=== PATIENT | female | born 1935 | race Caucasian/White ===

== ENCOUNTER 2018-05-31 04:43 | Inpatient (IN) ==
--- NOTE | 2018-05-16 11:28 | PAT Medication Instructions ---
Medication Instructions Date of Service May 16, 2018 Home Medications acetaminophen 1,000 mg PO QAM aspirin [Aspir-81] 81 mg PO QAM calcium carbonate-vitamin D3 [Calcium 600 + D(3)] 1 tab PO QPM ferrous sulfate 325 mg PO QAM fish,bora,flax oils-om3,6,9no1 [[place] 3-6-9] 1 tab PO QAM fluticasone furoate 2 spray INTRANASAL DAILY NEEDED levothyroxine 75 mcg PO QAM meloxicam 15 mg PO QAM metoprolol succinate 25 mg PO QAM potassium chloride 10 meq PO QPM ASK your surgeon for instructions meloxicam 15 mg PO QAM STOP taking 2 weeks before surgery fish,bora,flax oils-om3,6,9no1 [[place] 3-6-9] 1 tab PO QAM DO NOT take the morning of surgery ferrous sulfate 325 mg PO QAM fluticasone furoate 2 spray INTRANASAL DAILY NEEDED Take morning of surgery With a small sip of water, OTHERWISE NOTHING TO EAT OR DRINK AFTER MIDNIGHT: acetaminophen 1,000 mg PO QAM aspirin [Aspir-81] 81 mg PO QAM levothyroxine 75 mcg PO QAM metoprolol succinate 25 mg PO QAM Take evening before surgery calcium carbonate-vitamin D3 [Calcium 600 + D(3)] 1 tab PO QPM potassium chloride 10 meq PO QPM Other Notes If you have any questions please call us at [phone] or [phone] or [phone] or [phone]
--- NOTE | 2018-05-16 14:02 | Anesthesiology Consultation ---
Date of Service May 16, 2018 Assessment & Plan (1) Encounter for pre-operative examination: Chart Review Chart Review: Acceptable Risk for Surgery and Patient seen in Pre Admission Testing Consults Requested none Teaching & Discussion Pre-Anesthesia Teaching/Discussion Notes: Instructed NPO after midnight before surgery, except medications with 15 cc of water. Medication instructions provided according to the PAT guidelines. History Surgery Operation Date: 05/31/18 14:35 Proposed Procedures p Right Total Knee Replacement - Ralph Mg MD Height/Weight Height: 5 ft 3 in Weight: 71.8 kg Allergies Allergy/AdvReac Type Severity Reaction Status Date / Time No Known Allergies Allergy Unknown Verified 05/15/18 15:35 Medications Home Medications Medication Instructions Recorded Confirmed Last Taken acetaminophen 1,000 mg PO QAM 05/15/18 05/15/18 Unknown aspirin [Aspir-81] 81 mg PO QAM 05/15/18 05/15/18 Unknown calcium carbonate-vitamin D3 1 tab PO QPM 05/15/18 05/15/18 Unknown [Calcium 600 + D(3)] ferrous sulfate 325 mg PO QAM 05/15/18 05/15/18 Unknown fish,bora,flax oils-om3,6,9no1 1 tab PO QAM 05/15/18 05/15/18 Unknown [[place] 3-6-9] fluticasone furoate 2 spray INTRANASAL DAILY PRN 05/15/18 05/15/18 Unknown levothyroxine 75 mcg PO QAM 05/15/18 05/15/18 Unknown meloxicam 15 mg PO QAM 05/15/18 05/15/18 Unknown metoprolol succinate 25 mg PO QAM 05/15/18 05/15/18 Unknown melatonin 10 mg PO HS PRN 05/16/18 05/16/18 Unknown Past Medical History Medical History Anemia HX Cardiac murmur HX DVT (deep venous thrombosis) POST BABY DELIVERY LEG-40 YRS AGO-NO ISSUES SINCE Hypothyroidism Insomnia Osteoarthritis Paroxysmal atrial fibrillation Tremor "WHEN WRITING-RUNS IN THE FAMILY" Past Family History Family History Sister Family history of diabetes mellitus Sister Family history of diabetes mellitus Brother Family history of diabetes mellitus Father Family history of diabetes mellitus Past Surgical History Surgical History H/O colonoscopy x 4-5 Last one was 3 years ago. History of cataract surgery R/L History of herniorrhaphy Umbilical X 2 History of repair of rotator cuff RIGHT History of tonsillectomy ~Age 5-10 Past Anesthesia History No Hx of Anesthesia Complications and No Family Hx of Anesthesia Complications History of PONV No Motion Sickness Screening History of Motion Sickness: No Social History Smoking Status: Never smoker Do You Dip or Chew Tobacco: No Hx Alcohol Use: Yes Alcohol type: wine alcohol intake frequency: holidays/special occasions only Hx Substance Use: No Exercise / Class Metabolic Activity II 4-5 Yardwork/Stairs/Walk up hill (Able to climb FOS. Denies CP or SOB. ) Review of Systems Patient denies chest pain, shortness of breath, dyspnea on exertion, reflux, cough, wheezing, palpitations. +joint pain (both knees, back) Physical Exam Vital Signs BP: 116/74 P: 75 R: 16 T: 98.2 SPO2: 96% on RA ENMT Mouth: + poor dentition Thyromental Distance: > or= 3.5 Finger Breadths (4) Mallampati Class: I Neck normal visual inspection and trachea midline; neck extension not limited Respiratory normal respiratory effort Auscultation: lungs clear to auscultation bilaterally Cardiovascular Rate/Rhythm: regular rate and regular rhythm Heart Sounds: + murmur (2/6) Vessels: no carotid bruit Neurologic moves all extremities Psychiatric Orientation: alert and oriented x 3 Testing Electrocardiogram Date: 05/16/18 Findings: + NSR @ (64) Sinus rhythm with premature atrial complexes. Left axis deviation. Incomplete RBBB. When compared with ECG of 04/17/08, PACs are now present. Chest X-Ray Date: 05/16/18 Findings: + NAD Mild emphysematous change. Echocardiogram Date: 03/21/17 EF: 60-64% Other Findings: + diastolic dysfunction (Grade I) Aortic valve is moderately calcified. Moderate subvalvular AV calcification visualized, which is unchanged compared to prior study. Mild aortic valve stenosis is present. Calcified mitral apparatus without stenosis. Mild tricuspid regurgitation is present. There is no evidence of pulmonary hypertension. Compared to last available study, changes are noted as follows: mild aortic stenosis is present. Stress Test Date: 04/12/13 Type: exercise Findings: + WNL The stress ECHO is negative for inducible ischemia. Exercise capacity is average for patient's age/sex. Sinus rhythm was present throughout the study, with occasional PACs noted during exercise. The test was terminated due to fatigue and shortness of breath. Laboratory Results 05/16/18 14:34 05/16/18 14:34 Blood Type O Positive 05/16/18 14:34 Antibody Screen NEGATIVE 05/16/18 14:34 PT 11.4 Seconds (9.0-12.0) 05/16/18 14:34 INR 1.1 (0.9-1.1) 05/16/18 14:34 APTT 27.2 Seconds (21.0-31.0) 05/16/18 14:34
--- NOTE | 2018-05-16 15:11 | XRay Report ---
XR chest Pre-admission PA/Lat CLINICAL HISTORY: pat preoperative evaluation COMPARISON STUDY: No previous studies for comparison. FINDINGS: Calcified pleural plaque right perihilar region. Mild emphysematous change. No focal infilt rate. No significant cardiac enlargement. IMPRESSION: No acute process. Mild emphysematous change. The above report was generated using voice recognition software. It may contain grammatical, syntax or spelling errors. Electronically signed by: Surjit Lin M.D. 05/16/2018 3:10 PM
[2018-05-16 15:50] LABS: Basophils # (auto) 0.01 K/uL (0-0.2); Basophils % (auto) 0.2 %; Eosinophils # (auto) 0.05 K/uL (0-0.5); Hematocrit (blood only) 34.7 % (37-47); Hemoglobin 11.3 g/dL (12.0-16.0); Lymphocytes # (auto) 1.15 K/uL (1.2-3.4); Lymphocytes % (auto) 23.2 %; Mean Corpuscular Hgb Conc 32.6 g/dL (32-36); Mean Corpuscular Volume 93.8 fL (80-100); Mean Platelet Volume 10.8 fL (7.4-10.4); Monocytes # (auto) 0.51 K/uL (0.11-0.59); Monocytes % (auto) 10.3 %; Neutrophils # (auto) 3.23 K/uL (1.4-6.5); Neutrophils % (auto) 65.3 %; Platelet Count 284 K/uL (130-400); RDW Coefficient of Variation 12.8 % (11.5-14.5); RDW Standard Deviation 43.9 fL (36.4-46.3); White Blood Count 4.95 K/uL (4.8-10.8)
[2018-05-16 15:57] LABS: BUN Creatinine Ratio 18.5 (10-20); Creatinine Clr Calc Pharmacy 62.7 ml/min; Est GFR (African American) 95.8; Est GFR (Non-African American) 82.6; Potassium 4.4 mmol/L (3.5-5.1)
[2018-05-16 16:04] LABS: INR 1.1 (0.9-1.1); Partial Thromboplastin Time 27.2 Seconds (21.0-31.0); Prothrombin Time 11.4 Seconds (9.0-12.0)
--- NOTE | 2018-05-26 08:43 | History and Physical Report ---
DATE OF ADMISSION: 05/31/2018 CHIEF COMPLAINT: Bilateral knee pain and discomfort, right side greater than left. HISTORY OF PRESENT ILLNESS: The patient is an 82-year-old female who presents for surgical treatment of her right knee. She has got long history of bilateral knee pain and discomfort, describes it has gotten worse over the past several years. We have been treating her for the past 2 years with intermittent injections, which have become less successful with time. The right knee is a bit worse than the left. She describes global pain. Increased with any weightbearing activities. The more she walks, the more it hurts. She does limp more and more as the day goes on. She has nighttime pain. PAST MEDICAL HISTORY: 1. Atrial fibrillation, currently in sinus rhythm, followed by Dr. Rivera and on metoprolol. 2. Hiatal hernia. PREVIOUS SURGICAL HISTORY: 1. Herniorrhaphy. 2. Right shoulder surgery. ALLERGIES: None. CURRENT MEDICINES: Include: 1. Levothyroxine 75 mcg 30 minutes prior to breakfast. 2. Metoprolol ER 25 mg. 3. Baby aspirin once a day. 4. Iron sulfate 325 once a day. 5. Meloxicam 15 mg. 6. Calcium with D. 7. Tylenol. 8. [place]-3. 9. Potassium 10 mEq 3 times per week. SOCIAL HISTORY: An 82-year-old female. She is . No significant smoking history. FAMILY HISTORY: Noncontributory. REVIEW OF SYSTEMS: Significant for history of atrial fibrillation, currently on metoprolol and controlled. Denies any chest pain or shortness of breath. No history of DVT or PE. No known bleeding problems. PHYSICAL EXAMINATION: GENERAL: Shows a pleasant elderly female who looks to be in excellent health. HEENT: Benign. NECK: Supple. No lymphadenopathy. LUNGS: Clear to auscultation. HEART: Regular rate and rhythm. ABDOMEN: Soft, nontender, nondistended. EXTREMITIES: Grossly neurovascularly intact except as follows. Examination of the right knee reveals the patient ambulates with varus alignment to her knee with little bit of varus thrust. She has got about 10-15 degree flexion contracture on the right side and can flex to about 110-115. She is tender over the medial joint line. She has got bony hypertrophy medially. No pain with hip motion. Good distal pulse. X-RAYS: X-rays of the right knee reviewed. Shows advanced right knee DJD. She has got complete loss of medial joint space. She has got varus deformity with osteophytes in all 3 compartments. She has subchondral sclerosis. ASSESSMENT: An 82-year-old female with advanced bilateral knee pain, degenerative joint disease. The right side is a bit worse than the left. She has failed conservative treatment and would like to proceed with knee replacement. PLAN: We will take her to the Operating Room and do a right total knee replacement. The risks and benefits of this procedure were explained to the patient include but not limited to DVT, PE, , infection, neurological injury, vascular injury, bleeding problem, pain, limited range of motion, stiffness, failure to relieve her symptoms, incomplete relief of symptoms, need for further surgery in the future, fracture, leg length inequality, nerve palsy, etc. The patient understands and desires to proceed. Informed consent was obtained. We did talk to her about taking her metoprolol the morning of surgery. She stopped her Mobic. She is hoping to be discharged to home with [facility] I believe.
[2018-05-31] MEDS ORDERED: METOCLOPRAMIDE HCL 10 MG TABLET PO SCH (06:00)
[2018-05-31] MEDS ORDERED: ACETAMINOPHEN 500 MG TAB PO SCH ×2 (06:00→10:36)
[2018-05-31] MEDS ORDERED: BUPIVACAINE LIPOSOME/PF 266 MG, BUPIVACAINE/EPINEPHRINE 50 ML, SODIUM CHLORIDE 0.9% 30 ... INFIL SCH (06:00)
[2018-05-31] MEDS ORDERED: CEFAZOLIN 2000MG 2,000 MG/15 ML SYR IV SCH (06:00)
[2018-05-31] MEDS ORDERED: LR 60ML/HR IV SCH (06:00)
[2018-05-31] MEDS ORDERED: LR 500ML BOLUS, THEN 15ML/HR IV SCH (06:00)
[2018-05-31] MEDS ORDERED: GABAPENTIN 300 MG PO SCH (06:00)
[2018-05-31] MEDS ORDERED: FAMOTIDINE 20 MG TAB ONE (06:05)
[2018-05-31] MEDS ORDERED: ePHEDrine sulfate 50 MG/ML AMP IV PRN (06:22)
[2018-05-31] MEDS ORDERED: ONDANSETRON INJ 2 MG/ML 2 ML VIAL IV PRN ×2 (06:22→10:36)
[2018-05-31] MEDS ORDERED: ATROPINE SULFATE 0.1 MG/ML 10ML SYR IV PRN (06:22)
[2018-05-31] MEDS ORDERED: fentaNYL citrate 100 MCG/2 ML VIAL IV PRN (06:22)
[2018-05-31] MEDS ORDERED: MIDAZOLAM HCL 1 MG/ML 2ML VIAL ONE (06:23)
[2018-05-31] MEDS ORDERED: BUPIVACAINE 0.5 % 5 MG/1 ML PF 10ML VIAL ONE (06:26)
[2018-05-31] MEDS ORDERED: ROPIVACAINE 0.5% 5 MG/ML 30 ML VIAL ONE (06:27)
[2018-05-31] MEDS ORDERED: KETAMINE HCL INJ 50 MG/ML 10 ML VIAL ONE (06:28)
[2018-05-31] MEDS ORDERED: TRANEXAMIC ACID 1,000 MG **IV Intra-op IV SCH (06:30)
[2018-05-31] MEDS ORDERED: BACITRACIN INJ 50,000 UNIT VIAL ONE (06:35)
[2018-05-31] MEDS ORDERED: BUPIVACAINE LIPOSOME 1.3% 266 MG/20 ML VIAL ONE (06:35)
[2018-05-31] MEDS ORDERED: SODIUM CHLORIDE 0.9% PF 50 ML VIAL ONE (06:35)
[2018-05-31] MEDS ORDERED: BUPIVACAINE 0.25% 30 ML VIAL ONE (06:36)
[2018-05-31] MEDS ORDERED: EPINEPHrine INJ 1 MG/ML AMP ONE (06:36)
--- NOTE | 2018-05-31 06:48 | History & Physical Bridge Note ---
Date of Service May 31, 2018 History & Physical Bridge Note I have examined the patient, reviewed the History & Physical and in the interval since the performance of the History & Physical I have noted the following changes of clinical significance: no changes noted
[2018-05-31] MEDS ORDERED: ONDANSETRON INJ 2 MG/ML 2 ML VIAL ONE (07:20)
[2018-05-31] MEDS ORDERED: GLYCOPYRROLATE 0.2 MG/ML VIAL ONE (07:20)
[2018-05-31] MEDS ORDERED: LIDOCAINE HCL 2% 2 ML VIAL/AMP(20MG/ML) INFIL ONE (07:20)
[2018-05-31] MEDS ORDERED: PROPOFOL IV EMULSION 10 MG/ML 20 ML VIAL IV ONE (07:20)
[2018-05-31] MEDS ORDERED: DEXAMETHASONE SOD INJ 4 MG/ML VIAL ONE (07:20)
--- NOTE | 2018-05-31 08:50 | XRay Report ---
XR knee RT 2V routine CLINICAL HISTORY: Postoperative evaluation. COMPARISON: Right knee radiographs May 14, 2018. FINDINGS: Alignment of the total right knee arthroplasty is anatomic. There is no fracture or unexpe cted radiopaque foreign body. There are skin herbert. IMPRESSION: Expected findings following total right knee arthroplasty. Electronically signed by: Jimi Love M.D. 05/31/2018 8:49 AM
--- NOTE | 2018-05-31 09:03 | Post Operative Brief Note ---
Immediate Post Op Note v1 Date of Surgery May 31, 2018 Pre & Post Diagnosis Operation Date: 05/31/18 07:00 Pre-Op Diagnosis: Right Knee Degenerative Joint Disease Post-Op Diagnosis: Right Knee Degenerative Joint Disease Procedure Operation Date: 05/31/18 07:00 Actual Procedures p Right Total Knee Replacement(Right) - Ralph Mg MD Surgeon Ralph Mg MD Brake Holder Kaylie, PAC Estimated Blood Loss 50 Findings Consistent with Post-Op Diagnosis Fluids 1500 cc Specimens Right Knee Drains Samayoa Catheter (16fr samayoa catheter placed by ST Harish, without difficulty, samayoa demonstrates clear yellow urine. Output measured and recorded by anesthesia.) Anesthesia Type Spinal MAC Complications none Disposition Accompanied Patient To Recovery: No Disposition: Recovery Room
--- NOTE | 2018-05-31 10:20 | Anesthesiology Progress Note ---
Date of Service May 31, 2018 Anesthesia Post Procedure Vital Signs Vital Signs: Temp Pulse Pulse Resp BP Pulse Ox 05/31/18 10:10 36.7 C 68 17 111/68 97 05/31/18 10:00 67 18 115/58 L 98 05/31/18 09:50 67 19 108/57 L 97 05/31/18 09:40 67 17 109/60 98 05/31/18 09:30 70 18 106/57 L 97 05/31/18 09:20 69 21 114/60 98 05/31/18 09:10 67 16 118/56 L 100 05/31/18 09:00 66 14 111/64 100 05/31/18 08:50 68 17 106/51 L 100 05/31/18 08:40 66 15 104/55 L 100 05/31/18 08:33 36.5 C 70 18 100/50 L 100 05/31/18 05:45 36.8 C 69 18 97 Pain Intensity Bilateral Knee: Pain Intensity: 2 Notes Mental Status: alert / awake / arousable Patient Amnestic to Procedure: Yes Nausea / Vomiting: adequately controlled Pain: adequately controlled Airway Patency, RR, SpO2: stable & adequate BP & HR: stable & adequate Hydration State: stable & adequate Neuraxial Anesthesia: was administered and sensory block is resolving Anesthetic Complications: no major complications apparent and Pt Satisfied with anesthetic care
[2018-05-31] MEDS ORDERED: BISACODYL 10 MG SUPP PR PRN (10:36)
[2018-05-31] MEDS ORDERED: METOCLOPRAMIDE HCL INJ 5 MG/ML 2 ML VIAL IV PRN (10:36)
[2018-05-31] MEDS ORDERED: HYDROmorphone INJ 0.5 MG/0.5 ML SYR IV PRN (10:36)
[2018-05-31] MEDS ORDERED: [UNRECOGNIZED DRUG - REMARK] PO SCH (10:36)
[2018-05-31] MEDS ORDERED: ALUMINUM/MAGNESIUM SUSP 30 ML UDC PO PRN (10:36)
[2018-05-31] MEDS ORDERED: NALOXONE HCL 0.4 MG/1 ML VIAL/CARP IV PRN (10:36)
[2018-05-31] MEDS ORDERED: MAGNESIUM HYDROXIDE SUSP 30 ML UDC PO PRN (10:36)
[2018-05-31] MEDS ORDERED: NON-FORMULARY MEDICATION (Ferrous Sulfate 325 MG) PO SCH (10:36)
[2018-05-31] MEDS ORDERED: FLUTICASONE PROPIONATE NA SPR 16 GM BTL PRN (11:00)
[2018-05-31] MEDS: KETOROLAC TROMETHAMINE 15 MG/ML VIAL IV SCH ×3 (12:50→23:39)
[2018-05-31] MEDS: MULTIVITAMIN TAB PO SCH (12:50)
[2018-05-31] MEDS: LEVOTHYROXINE SODIUM 75 MCG TABLET PO SCH (12:50)
[2018-05-31] MEDS: DOCUSATE SODIUM 100 MG CAP PO SCH ×2 (12:50→21:56)
[2018-05-31] MEDS: SODIUM CHLORIDE 0.9% 1000ML 1,000 ML IV SCH ×2 (12:51→21:56)
[2018-05-31] MEDS: ACETAMINOPHEN 500 MG TAB PO SCH ×2 (13:45→21:57)
[2018-05-31] MEDS: CEFAZOLIN 1000MG 1,000 MG/7.5 ML SYR IV SCH ×2 (13:46→21:57)
[2018-05-31] MEDS ORDERED: TRANEXAMIC ACID 1,000 MG in 0.9 % SODIUM CHLORIDE 100 ML IV SCH (14:30)
[2018-05-31] MEDS: FERROUS GLUCONATE 324 MG TAB PO SCH (17:29)
[2018-05-31] MEDS: ASCORBIC ACID 500 MG TAB PO SCH (17:29)
--- NOTE | 2018-05-31 20:52 | Progress Note ---
DATE: 05/31/2018 SUBJECTIVE: An 82-year-old female postop from a right knee replacement. Really not having much pain at all yet. No chest pain or shortness of breath. Not feeling dizzy or lightheaded. OBJECTIVE: VITAL SIGNS: Temperature 36.5. Vital signs stable. PHYSICAL EXAMINATION: GENERAL: Examination shows pleasant elderly female. She is sitting up in her bedside chair and looks pretty comfortable. LUNGS: Clear to auscultation. HEART: Regular rate and rhythm. ABDOMEN: Soft, nontender, nondistended. EXTREMITIES: Grossly neurovascularly intact except as follows: Examination of the right knee reveals the dressing to be clean, dry and intact. She can dorsiflex and plantarflex her foot appropriately. She has got brisk refill. Good distal pulse. X-RAYS: X-ray of the right knee from recovery room reviewed. Shows cemented posterior stabilized right total knee arthroplasty. Components looked to be in good position. No signs of problems. ASSESSMENT: An 82-year-old female postop from a right knee replacement. She is doing pretty well. Her pain is controlled. She is neurologically intact. PLAN: 1. DVT prophylaxis including thigh-high TEDs, SCDs, and aspirin twice daily. 2. PT/OT. Weight bear as tolerated. Right total knee protocol. 3. Pain control, doing well with current pain regimen. 4. IV antibiotics x24 hours. 5. Disposition: Plan to discharge to home with some home health once adequately recovered.
[2018-05-31] MEDS: SENNA 8.6 MG TAB PO SCH (21:57)
[2018-05-31] MEDS: ASPIRIN 81 MG ECTAB PO SCH (21:57)
[2018-05-31] MEDS: CALCIUM 600MG + VIT D 400 IU TAB PO SCH (21:57)
[2018-05-31] MEDS: TRAMADOL HCL 50 MG TABLET PO PRN (23:39)
--- NOTE | 2018-06-01 00:02 | Operative Report ---
DATE OF OPERATION: 05/31/2018 SURGEON: Ralph Mg MD PUBLIC POLICY ASSOCIATE: TONG Medina PREOPERATIVE DIAGNOSIS: Right knee degenerative joint disease. POSTOPERATIVE DIAGNOSIS: Same. PROCEDURE PERFORMED: Right cemented posterior stabilized total knee arthroplasty. COMPLICATIONS: None. ESTIMATED BLOOD LOSS: 50 mL. FLUID REPLACEMENT: 1500 mL crystalloid fluid replacement. TOURNIQUET TIME: 51 minutes at 300 mmHg. ANESTHESIA: Spinal with adductor canal block. DRAINS: None. SPECIMENS: Right knee sent for pathology. OPERATIVE INDICATIONS: The patient is an 82-year-old active female who has had a long history of bilateral knee pain and discomfort, right side a bit worse than the left. She has been through extensive conservative treatment over the years, it became less successful. It is really limiting her lifestyle. X-rays show advanced DJD. She elected to proceed with right total knee replacement. OPERATIVE FINDINGS: Operative findings revealed advanced right knee DJD. She has had extensive grade 4 [id number] disease and eburnation in the medial compartment. She also had grade 4 changes in the patellofemoral compartment and some focal grade 4 changes laterally. She had a varus deformity to her knee with a flexion contracture of 10-15 degrees and moderate-sized knee effusion. OPERATIVE IMPLANTS: Operative implants consisted of: 1. A Biomet Vanguard size 65 right posterior stabilized femoral component. 2. A Biomet size 71 tibial tray. 3. A 12 mm posterior stabilized polyethylene insert. 4. A 31 x 8 all poly patella. OPERATIVE PROCEDURE: The patient was taken to the operating room, identified, and placed on the operative table in supine position. All contact areas were appropriately padded. IV antibiotics were provided by anesthesia team. A spinal anesthetic and adductor canal block had been provided in the holding area. Lowe catheter was placed in sterile fashion. A right thigh tourniquet was then placed and the right lower extremity was then prepped and draped in the usual sterile fashion. The right leg was elevated and exsanguinated with Esmarch and tourniquet was placed at 300 mmHg. An anterior approach to the right knee was then performed through a longitudinal incision centered over the patella. Sharp dissection was carried through subcutaneous tissue down to the level of the extensor mechanism. Medial parapatellar arthrotomy incision was made. Some subperiosteal dissection was carried out medially. The fat pad was resected from beneath the patellar tendon. The lateral patellofemoral ligament was released. The patella was everted and knee was flexed. The osteophytes were taken off the distal femur. The ACL and PCL were then released from the distal femur and the tibia subluxated anteriorly. The external tibial alignment jig was then placed in the anterior face of the tibia and adjusted 16 mm medially. Proximal tibial cut was made to remove about a millimeter of bone from the most deficient aspect of the medial tibial plateau. Some osteophytes were taken off medial and posteromedially. Attention was then drawn to the femur. The distal femur was entered with a sharp drill bit. Intramedullary canal was suctioned. A right 6-degree valgus cutting guide was placed. Distal femoral cutting block was pinned in place. Distal femoral cut was made to take an additional 3 mm of bone off the distal femur. The femur was then sized to a size 65. We did downsize this slightly. The AP cutting block was pinned parallel to the epicondylar axis, which was 0 degrees of external rotation. The anterior cut, anterior chamfer, posterior cut, posterior chamfer cuts were made. Box cutting guide was placed and adjusted slightly lateral and the box cut was made. The knee was flexed. The remnants of the medial and lateral menisci were excised. The osteophytes were taken off the posterior aspect of the femur. Trial femoral component was placed. The size 71 tibial tray was pinned in place, it was placed in maximum external rotation. The drill and stem punch were used to create a defect in proximal tibia for the tibial tray. The knee was then trialed and 12 mm insert fit most appropriately. Attention was then drawn to the patella. The patella was cleaned of all soft tissue. Patellar thickness measured 22 mm in thickness, it was cut down to 13. It was sized to a size 31 patella. The lateral osteophytes were removed. Patella button was placed. Knee was taken through range of motion and patella tracked nicely with no thumbs test. Attention was then drawn toward placement of permanent components. All trial components were removed. Bone plug was placed in the distal femur to limit blood loss. A double batch of [place] G cement was mixed. A Biomet Vanguard size 65 right posterior stabilized femoral component, Biomet size 71 tibial tray, a 12 mm posterior stabilized polyethylene insert, and a 31 x 8 all poly patella were then cemented in place. Knee was brought out into full extension until cement hardened. A final cement check was then performed. Pericapsular tissues were injected with a total of 100 mL with a combination of 20 mL of Exparel, 30 mL of normal saline, 50 mL of 0.25% Marcaine with epinephrine. The patient did receive 1 gram of tranexamic acid. The tourniquet was then let down for a tourniquet time of 51 minutes. Hemostasis was assured with use of electrocautery. The extensor mechanism was then closed with a combination of #1 PDS suture and #1 Vicryl suture in a [id number] fashion. The extensor mechanism was checked and found to be intact. The subcutaneous tissue was then closed with #2 Dexon suture in buried interrupted fashion. The skin was closed with skin herbert. Leg was then cleaned and dried and a sterile dressing of Xeroform, 4 x 4's, sterile cast padding, and Cory bandage were applied. The patient was then transferred to the recovery room in stable condition. The patient tolerated the procedure well with no complication. All needle and sponge counts were correct at the end of the operation. I attest to the content of the Intraoperative Record and any orders documented therein. Any exception s are noted below.
[2018-06-01] MEDS: KETOROLAC TROMETHAMINE 15 MG/ML VIAL IV SCH ×3 (05:58→17:33)
[2018-06-01] MEDS: ACETAMINOPHEN 500 MG TAB PO SCH ×3 (05:58→22:16)
[2018-06-01] MEDS: LEVOTHYROXINE SODIUM 75 MCG TABLET PO SCH (05:59)
[2018-06-01 06:42] LABS: Hematocrit (blood only) 29.5 % (37-47); Hemoglobin 9.8 g/dL (12.0-16.0); Mean Corpuscular Hgb Conc 33.2 g/dL (32-36); Mean Corpuscular Volume 92.2 fL (80-100); Platelet Count 213 K/uL (130-400); RDW Coefficient of Variation 12.2 % (11.5-14.5); RDW Standard Deviation 41.8 fL (36.4-46.3)
[2018-06-01 07:18] LABS: BUN Creatinine Ratio 25.6 (10-20); Calcium 7.4 mg/dl (8.5-10.1); Creatinine Clr Calc Pharmacy 72.6 ml/min; Est GFR (African American) 101.5; Est GFR (Non-African American) 87.6; Potassium 4.2 mmol/L (3.5-5.1)
[2018-06-01] MEDS: FERROUS GLUCONATE 324 MG TAB PO SCH ×2 (08:26→17:34)
[2018-06-01] MEDS: ASCORBIC ACID 500 MG TAB PO SCH ×2 (08:26→17:33)
[2018-06-01] MEDS: METOPROLOL SUCC 25MG EXT REL TAB PO SCH (08:26)
[2018-06-01] MEDS: MULTIVITAMIN TAB PO SCH (08:27)
[2018-06-01] MEDS: ASPIRIN 81 MG ECTAB PO SCH ×2 (08:27→22:16)
[2018-06-01] MEDS: DOCUSATE SODIUM 100 MG CAP PO SCH ×2 (08:27→22:16)
--- NOTE | 2018-06-01 08:27 | Anesthesiology Progress Note ---
Date of Service June 01, 2018 Anesthesia Post Procedure Vital Signs Vital Signs: Temp Pulse Pulse Resp BP Pulse Ox 06/01/18 07:20 37.5 C 68 18 106/64 95 06/01/18 03:15 37.3 C 67 16 104/61 95 05/31/18 23:34 36.9 C 67 16 112/67 95 05/31/18 20:42 36.9 C 75 18 116/66 95 05/31/18 16:17 36.5 C 70 19 122/70 96 05/31/18 13:30 37.4 C 72 16 127/74 99 05/31/18 12:33 67 16 136/75 100 05/31/18 12:30 75 16 135/77 100 05/31/18 11:43 70 16 122/76 100 05/31/18 11:00 36.6 C 63 16 115/71 99 05/31/18 10:30 37 C 71 16 103/60 05/31/18 10:10 36.7 C 68 17 111/68 97 05/31/18 10:00 67 18 115/58 L 98 05/31/18 09:50 67 19 108/57 L 97 05/31/18 09:40 67 17 109/60 98 05/31/18 09:30 70 18 106/57 L 97 05/31/18 09:20 69 21 114/60 98 05/31/18 09:10 67 16 118/56 L 100 05/31/18 09:00 66 14 111/64 100 05/31/18 08:50 68 17 106/51 L 100 05/31/18 08:40 66 15 104/55 L 100 05/31/18 08:33 36.5 C 70 18 100/50 L 100 Pain Intensity Bilateral Knee: Pain Intensity: 2 Left Knee: Pain Intensity: 3 Right Knee: Pain Intensity: 8 Notes Mental Status: alert / awake / arousable Nausea / Vomiting: adequately controlled Pain: adequately controlled Airway Patency, RR, SpO2: stable & adequate BP & HR: stable & adequate Hydration State: stable & adequate Neuraxial Anesthesia: was administered and sensory block resolved Anesthetic Complications: no major complications apparent and Pt Satisfied with anesthetic care
[2018-06-01] MEDS: TRAMADOL HCL 50 MG TABLET PO PRN (08:29)
[2018-06-01] MEDS ORDERED: HYDROmorphone HCL 2 MG TAB PO PRN (13:45)
--- NOTE | 2018-06-01 14:00 | Progress Note ---
DATE: 06/01/2018 SUBJECTIVE: An 82-year-old female postop day 1 from a right knee replacement. She is doing pretty well. Pain has been controlled. She denies any chest pain or shortness of breath. Not feeling dizzy or lightheaded. OBJECTIVE: VITAL SIGNS: Temperature is 36.4. Vital signs stable. GENERAL: Physical examination reveals a pleasant elderly female. She is sitting up in her bedside chair, looks pretty comfortable. EXTREMITIES: Examination of the right leg reveals the dressing to be clean, dry and intact. She can dorsiflex and plantarflex her foot appropriately. She is neurologically intact. LABORATORY DATA: Hemoglobin 9.8, hematocrit 29.5. Electrolytes are stable. She is slightly hyponatremic with sodium of 129. ASSESSMENT: An 82-year-old female postop day 1 from a right knee replacement, doing pretty well. Her pain is controlled. She is neurologically intact. PLAN: 1. DVT prophylaxis including thigh-high TEDs, SCDs, and aspirin twice a day. 2. PT/OT. Weight bear as tolerated. Right total knee protocol. 3. Pain control. Doing reasonably well with current pain regimen. 4. Disposition: She is planning to be discharged to home with some home health once medically stable and recovered.
[2018-06-01] MEDS: CALCIUM 600MG + VIT D 400 IU TAB PO SCH (22:16)
[2018-06-01] MEDS: SENNA 8.6 MG TAB PO SCH (22:16)
[2018-06-02] MEDS: KETOROLAC TROMETHAMINE 15 MG/ML VIAL IV SCH ×2 (01:14→06:09)
[2018-06-02] MEDS: TRAMADOL HCL 50 MG TABLET PO PRN ×2 (02:23→08:44)
[2018-06-02] MEDS: ACETAMINOPHEN 500 MG TAB PO SCH (06:08)
[2018-06-02] MEDS: LEVOTHYROXINE SODIUM 75 MCG TABLET PO SCH (06:09)
[2018-06-02 06:37] LABS: BUN Creatinine Ratio 25.6 (10-20); Calcium 8.1 mg/dl (8.5-10.1); Creatinine Clr Calc Pharmacy 86.2 ml/min; Est GFR (African American) 107.4; Est GFR (Non-African American) 92.6; Potassium 4.2 mmol/L (3.5-5.1)
[2018-06-02] MEDS: METOPROLOL SUCC 25MG EXT REL TAB PO SCH (08:39)
[2018-06-02] MEDS: ASPIRIN 81 MG ECTAB PO SCH (08:40)
[2018-06-02] MEDS: ASCORBIC ACID 500 MG TAB PO SCH (08:40)
[2018-06-02] MEDS: DOCUSATE SODIUM 100 MG CAP PO SCH (08:40)
[2018-06-02] MEDS: FERROUS GLUCONATE 324 MG TAB PO SCH (08:40)
[2018-06-02] MEDS: MULTIVITAMIN TAB PO SCH (08:40)
--- NOTE | 2018-06-02 11:10 | Progress Note ---
DATE: 06/02/2018 SUBJECTIVE: The patient is an 82-year-old female seen walking in the [place] with her family and physical therapist today on the Orthopedic Floor. She is alert and oriented. Pain is not too bad. She is using a walker. She had a pretty good night sleep and ready to go home. OBJECTIVE: VITAL SIGNS: Temperature 36.8, blood pressure is slightly elevated at 146/76. GENERAL: She is alert and oriented. EXTREMITIES: Incision is well healed. No drainage noted. No calf discomfort. Working on range of motion. LABORATORY DATA: Images show a well cemented and placed total knee arthroplasty. Other lab work shows that her H and H today is 9.8 and 29.5. ASSESSMENT: An 82-year-old female postop day 2 right total knee arthroplasty, doing well. PLAN: We will do DVT prophylaxis including thigh-high SURI stockings, aspirin. She will do outpatient home health with weightbearing as tolerated and per the total knee protocol. She will be discharged with pain medications and she will follow up in the office with Dr. Mg in 10-14 days to remove surgical clips. CHIARA
--- NOTE | 2018-06-06 07:40 | Discharge Summary ---
Date of Service June 12, 2018 Discharge Data Consultations 05/31/18 10:36 Consult Case Management - Discharge Planning Routine Procedures Performed Operation Date: 05/31/18 07:00 Actual Procedures p Right Total Knee Replacement(Right) - Ralph Mg MD
--- NOTE | 2018-06-10 22:34 | Discharge Summary ---
ADMITTING PHYSICIAN AND SURGEON: Ralph Mg MD ADMITTING DIAGNOSIS: Right knee degenerative joint disease. SURGERY PERFORMED: Right total knee arthroplasty. SECONDARY DIAGNOSES: Atrial fibrillation, hiatal hernia. CONSULTS: None obtained. HISTORY AND PHYSICAL EXAMINATION: Well documented in the patient's chart. HOSPITAL COURSE: The patient was admitted on 05/31/2018, underwent total knee arthroplasty, tolerated the procedure well. There were no complications. She was transferred to the PACU postoperatively and later to the Orthopedic for further care. She was given Ancef for antibiotic prophylaxis, SURI stockings and sequential compression devices and aspirin for deep venous thrombosis prophylaxis. Hemoglobin, hematocrit and vital signs were monitored during hospital stay and remained stable. She did have some anemia with a hemoglobin down to 9.8, did not require any blood transfusions. There were no complications. On postoperative day 2, she was tolerating a regular diet, pain was controlled with oral pain medicine. She was participating in physical therapy. On postoperative day 2, she was discharged home, set up with home health services. She was given printed discharge instructions including new prescriptions for extra strength Tylenol, aspirin, iron supplement and hydromorphone. Continue her home medications, continue physical therapy, weightbearing as tolerated, SURI stockings and follow up approximately 2 weeks postoperatively or sooner if any problems or concerns.
== END 2018-06-02 11:11 | disposition home health service (06) | DRG 470 ==
LOC: ASU 04:43 → 3E 10:26

== ENCOUNTER 2023-03-23 14:04 | Observation (INO) ==
[2023-03-23 15:48] LABS: Basophils # (auto) 0.01 K/uL (0.00-0.20); Basophils % (auto) 0.2 %; Eosinophils # (auto) 0.04 K/uL (0.00-0.50); Eosinophils % (auto) 0.7 %; Hematocrit (blood only) 38.9 % (37.0-47.0); Hemoglobin 13.3 g/dl (12.0-16.0); Immature Granulocytes # (auto) 0.01 K/uL (0.01-0.20); Immature Granulocytes % (auto) 0.2 %; Lymphocytes % (auto) 19.5 %; Mean Corpuscular Hgb Conc 34.2 g/dL (32.0-36.0); Mean Corpuscular Volume 90.7 fL (80.0-100.0); Mean Platelet Volume 10.4 fL (9.4-12.4); Monocytes # (auto) 0.43 K/uL (0.11-0.59); Monocytes % (auto) 7.6 %; Neutrophils # (auto) 4.04 K/uL (1.40-6.50); Neutrophils % (auto) 71.8 %; Platelet Count 271 K/uL (130-400); RDW Coefficient of Variation 12.2 % (11.5-14.5); RDW Standard Deviation 40.3 fL (36.4-46.3); Red Blood Count 4.29 M/uL (4.20-5.40); White Blood Count 5.63 K/ul (4.8-10.8)
[2023-03-23 15:49] LABS: BUN Creatinine Ratio 21.5 (10-20); Calcium 8.9 mg/dl (8.6-10.3); Creatinine Clr Calc Pharmacy 54.6 ml/min; Est GFR (African American) 93.8 ml/min; Potassium 5.1 mmol/L (3.5-5.1)
[2023-03-23 15:55] LABS: Troponin I High Sensitivity 14.6 pg/ml (0-14)
[2023-03-23 16:02] LABS: Influenza B virus by PCR Negative (Neg); RSV by PCR Negative (Neg); SARS CoV2 RNA(COVID-19) Ceph NEGATIVE (Negative)
--- NOTE | 2023-03-23 16:02 | XRay Report ---
XR chest 1V portable HISTORY: Chest pain, nonspecific COMPARISON: Chest 05/16/2018. FINDINGS: No pneumothorax. No pleural effusions. Emphysema again noted. No focal lung consolidations to suggest a pneumonia. No evidence for pulmonary edema. Mild chronic interstitial thickening persist s. The heart is normal in size. Degenerative changes within the shoulders. Stable 2 cm right suprahil ar nodule. This appears to represent a calcified granuloma. IMPRESSION: No significant change compared to the prior study. No acute process. ACT 112: Negative or not required by law. Electronically signed by: Jamal Dougherty M.D. 03/23/2023 4:01 PM
[2023-03-23 16:04] LABS: INR 1.1 (0.9-1.1); Partial Thromboplastin Ratio 1.1; Partial Thromboplastin Time 30 Seconds (21-31); Prothrombin Time 12.3 Seconds (9.0-12.0)
--- NOTE | 2023-03-23 16:05 | Emergency Department Note ---
Impression & Plan Influenza A, Elevated troponin, Shortness of breath ED Provider Note NAME: RANDY ALDRICH AGE: 87 SEX: F : 1935 ARRIVES VIA: Walk-In INFORMANT: Patient ED PROVIDER(S): Jerry Whitten DO CHIEF COMPLAINT: shortness of breath HPI: Patient is an 87-year-old female who presents the ER for shortness of breath. Symptoms started about 2 weeks ago with cough and congestion. She has a shortness of breath started about a week ago. She denies any fevers. No chest pain. No belly pain. No nausea, vomiting, or diarrhea. No dysuria, urgency, or frequency. She had been on antibiotics as an outpatient for 2 days but it upset her stomach consequently she stopped them. Family at bedside note that he just came from PCPs office for shortness of breath. ADDITIONAL HISTORY OBTAINED: Per HPI Chronic Medical/Social Conditions Affecting Care: Per HPI PAST MEDICAL HISTORY:See Below PAST SURGICAL HISTORY:See Below FAMILY HISTORY:See Below SOCIAL HISTORY:See Below HOME MEDICATIONS:See Below ALLERGIES:See Below VITALS:See Below PHYSICAL EXAMINATION: GENERAL: Sitting up in bed, alert, well appearing, well nourished, no distress, non-toxic EYE EXAM: normal conjunctiva. PERRL and EOM's grossly intact. OROPHARYNX: no exudate, no erythema, lips, buccal mucosa, and tongue normal and mucous membranes are moist NECK: supple, no nuchal rigidity, no adenopathy, non-tender LUNGS: faint wheezing B/L. Normal chest wall mechanics HEART: no murmurs, S1 normal and S2 normal ABDOMEN: abdomen soft, non-tender, normo-active bowel sounds, no masses, no rebound or guarding. BACK: Back is symmetrical on inspection and there is no deformity, no midline tenderness, no CVA tenderness. SKIN: no rashes and no bruising UPPER EXTREMITIES: upper extremities are grossly normal. LOWER EXTREMITIES: No pitting edema. NEURO EXAM: Normal sensorium, cranial nerves II-XII grossly intact, normal speech, no gross weakness of arms, no gross weakness of legs. MEDICAL DECISION MAKING: Patient is an 87-year-old female who presents ER for above-stated complaint. IV was established blood work is obtained. Labs show no significant leukocytosis or anemia. INR unremarkable. BMP with mild hyponatremia at 131. LFTs bilirubin were unremarkable. Troponin was elevated at 15. Influenza positive. Chest x-ray was unremarkable. EKG nondiagnostic. Patient was given IV fluids. Updated at bedside. External records were reviewed from [facility]. As she was slightly hypoxic and referred in to discuss case with the hospitalist for further evaluation management treatment. Consults/Care Managements Discussions: Per [facility] Triage Nursing notes reviewed. Limited review of prior medical records performed Vital Signs: reviewed and remarkable for no significant abnormalities Differential diagnosis: Differential diagnoses includes but is not limited to pneumonia, bronchitis, COPD/Asthma exacerbation, pneumothorax, pulmonary embolism, congestive heart failure, acute coronary syndrome ER treatment provided: See below Diagnostics interpreted by me include EKG and cardiac monitoring as listed below: -Cardiac Monitoring: An order was placed for continuous cardiac monitoring. The monitor shows a rate of 62 with sinus rhythm. -ECG: Sinus rhythm rate 62 Left axis No PVCs QTc 460 -Laboratory studies:Interpreted by me as stated above in MDM and shown below. Imaging studies: Xrays: As interpreted by me: Portable AP upright 1 view of the chest shows no focal infiltrate per my read CTs show: none Procedures:none Critical Care: None Past Med/Surg History Medical History (Updated 03/23/23 @ 21:52 by Jerry Whitten DO) SVT (supraventricular tachycardia) HLD (hyperlipidemia) Cyst of finger Lumbar spondylosis Insomnia Hypothyroidism Paroxysmal atrial fibrillation Osteoarthritis Anemia HX DVT (deep venous thrombosis) POST BABY DELIVERY LEG-40 YRS AGO-NO ISSUES SINCE Tremor "WHEN WRITING-RUNS IN THE FAMILY" Cardiac murmur HX Surgical History H/O colonoscopy x 4-5 Last one was 3 years ago. History of tonsillectomy ~Age 5-10 History of cataract surgery R/L History of herniorrhaphy Umbilical X 2 History of repair of rotator cuff RIGHT Family History Sister Family history of diabetes mellitus Sister Family history of diabetes mellitus Brother Family history of diabetes mellitus Father Family history of diabetes mellitus Social History Smoking Status: Never smoker Second Hand Exposure: No; Do You Dip or Chew Tobacco: No; Hx Alcohol Use: Yes Alcohol type: wine Hx Substance Use: No Preferred Language: Nepali Communication Ability: Effective Inspector Assembly Required: No Beliefs That Will Affect Care: None marital status: Current Living Situation: Spouse Feels Safe at Home: Yes Assistive Devices: Walker Allergies Allergies Allergy/AdvReac Type Severity Reaction Status Date / Time No Known Allergies Allergy Unknown Verified 03/23/23 16:59 Home Meds Home Medications Medication Instructions Recorded Confirmed acetaminophen 500 mg tablet 1,000 mg PO BID 05/15/18 03/23/23 ferrous sulfate 325 mg (65 mg 325 mg PO QAM 05/15/18 03/23/23 iron) tablet fish, borage, flaxseed oils-omega 1 tab PO QAM 05/15/18 03/23/23 3,6,9 comb no.1 1,200 mg capsule ([place] 3-6-9) metoprolol succinate 25 mg 25 mg PO BID 05/15/18 03/23/23 tablet,extended release 24 hr Congaplex 1 dose PO DIRECTED PRN Cold 03/23/23 03/23/23 Symptoms albuterol sulfate 90 mcg/actuation 2 puff inhalation Q4H PRN 03/23/23 03/23/23 aerosol inhaler WHEEZING/COUGH ammonium lactate 12 % topical cream 1 applic topical HS PRN DRY SKIN 03/23/23 03/23/23 AREAS amoxicillin 500 mg capsule 2,000 mg PO DIRECTED PRN 1 HR 03/23/23 03/23/23 PRIOR TO DENTAL PROCEDURES apixaban 2.5 mg tablet (Eliquis) 2.5 mg PO BID 03/23/23 03/23/23 calcium carbonate 500 mg-vitamin 1 tab PO DAILY 03/23/23 03/23/23 D3 3.125 mcg (125 unit) tablet cetirizine 10 mg tablet (Zyrtec) 10 mg PO DAILY 03/23/23 03/23/23 cholecalciferol (vitamin D3) 25 37.5 mcg PO DAILY 03/23/23 03/23/23 mcg (1,000 unit) tablet (Vitamin D3) diclofenac sodium 1 % topical gel 4 g topical BID PRN KNEE PAIN 03/23/23 03/23/23 diphenhydramine 25 1 tab PO HS 03/23/23 03/23/23 mg-acetaminophen 500 mg tablet (Tylenol PM Extra Strength) ipratropium bromide 21 mcg (0.03 2 spray intranasal BID PRN RHINITIS 03/23/23 03/23/23 %) nasal spray levothyroxine 100 mcg tablet 100 mcg PO DAILYBB 03/23/23 03/23/23 mupirocin 2 % topical ointment 1 applic topical DAILY PRN RIGHT 03/23/23 03/23/23 DENOMINATIONAL NEEDED Results & Data (ED) Vital Signs Vital Signs - 24 hr 03/23/23 14:18 03/23/23 15:03 03/23/23 15:05 Temperature 36.7 C 36.8 C Temperature Source Skin Oral Pulse Rate 66 Pulse Rate [Left Apical] 62 Pulse Rate from SpO2 Sensor Respiratory Rate 20 19 Respiratory Effort / Characteristics Non-Labored Spontaneous Non-Labored Spontaneous Respiratory Depth Normal Normal Respiratory Pattern Regular Regular Blood Pressure 153/81 H Blood Pressure [Right Arm] 154/76 H Blood Pressure Mean 105 Blood Pressure Mean [Right Arm] 102 Pulse Oximetry 92 92 Oxygen Delivery Method Room Air Room Air Room Air Oxygen Flow Rate Sepsis Recent Fever Within 48 Hours No Sepsis New/Unexplained Change in Mental Status N/A Sepsis Action Taken by Nursing No Action Required Oxygen Flow Rate - Titration 03/23/23 15:05 03/23/23 15:05 03/23/23 15:16 Temperature Temperature Source Pulse Rate 60 Pulse Rate [Left Apical] Pulse Rate from SpO2 Sensor 60 Respiratory Rate 25 H Respiratory Effort / Characteristics Respiratory Depth Respiratory Pattern Blood Pressure Blood Pressure [Right Arm] Blood Pressure Mean Blood Pressure Mean [Right Arm] Pulse Oximetry 91 91 91 Oxygen Delivery Method Room Air Room Air Oxygen Flow Rate 0 Sepsis Recent Fever Within 48 Hours Sepsis New/Unexplained Change in Mental Status Sepsis Action Taken by Nursing Oxygen Flow Rate - Titration 0 03/23/23 15:20 03/23/23 15:29 03/23/23 15:30 Temperature Temperature Source Pulse Rate 63 62 Pulse Rate [Left Apical] Pulse Rate from SpO2 Sensor 63 Respiratory Rate 31 H Respiratory Effort / Characteristics Respiratory Depth Respiratory Pattern Blood Pressure 138/75 Blood Pressure [Right Arm] Blood Pressure Mean 104 Blood Pressure Mean [Right Arm] Pulse Oximetry 91 Oxygen Delivery Method Oxygen Flow Rate Sepsis Recent Fever Within 48 Hours Sepsis New/Unexplained Change in Mental Status Sepsis Action Taken by Nursing Oxygen Flow Rate - Titration 03/23/23 15:30 03/23/23 15:40 03/23/23 15:50 Temperature Temperature Source Pulse Rate 64 62 63 Pulse Rate [Left Apical] Pulse Rate from SpO2 Sensor 63 62 63 Respiratory Rate 21 26 H 21 Respiratory Effort / Characteristics Respiratory Depth Respiratory Pattern Blood Pressure Blood Pressure [Right Arm] Blood Pressure Mean Blood Pressure Mean [Right Arm] Pulse Oximetry 91 91 91 Oxygen Delivery Method Oxygen Flow Rate Sepsis Recent Fever Within 48 Hours Sepsis New/Unexplained Change in Mental Status Sepsis Action Taken by Nursing Oxygen Flow Rate - Titration 03/23/23 16:00 03/23/23 16:00 03/23/23 16:10 Temperature Temperature Source Pulse Rate 63 62 Pulse Rate [Left Apical] Pulse Rate from SpO2 Sensor 63 62 Respiratory Rate 23 22 Respiratory Effort / Characteristics Respiratory Depth Respiratory Pattern Blood Pressure 154/82 H Blood Pressure [Right Arm] Blood Pressure Mean 101 Blood Pressure Mean [Right Arm] Pulse Oximetry 91 91 Oxygen Delivery Method Oxygen Flow Rate Sepsis Recent Fever Within 48 Hours Sepsis New/Unexplained Change in Mental Status Sepsis Action Taken by Nursing Oxygen Flow Rate - Titration 03/23/23 16:20 03/23/23 16:30 03/23/23 16:30 Temperature Temperature Source Pulse Rate 56 L 56 L Pulse Rate [Left Apical] Pulse Rate from SpO2 Sensor 52 L 56 L Respiratory Rate 24 22 Respiratory Effort / Characteristics Respiratory Depth Respiratory Pattern Blood Pressure 146/78 H Blood Pressure [Right Arm] Blood Pressure Mean 111 Blood Pressure Mean [Right Arm] Pulse Oximetry 91 94 Oxygen Delivery Method Oxygen Flow Rate Sepsis Recent Fever Within 48 Hours Sepsis New/Unexplained Change in Mental Status Sepsis Action Taken by Nursing Oxygen Flow Rate - Titration 03/23/23 16:40 03/23/23 16:50 03/23/23 17:00 Temperature Temperature Source Pulse Rate 53 L 57 L Pulse Rate [Left Apical] Pulse Rate from SpO2 Sensor 53 L 56 L Respiratory Rate 23 21 Respiratory Effort / Characteristics Respiratory Depth Respiratory Pattern Blood Pressure 168/84 H Blood Pressure [Right Arm] Blood Pressure Mean 121 Blood Pressure Mean [Right Arm] Pulse Oximetry 93 93 Oxygen Delivery Method Oxygen Flow Rate Sepsis Recent Fever Within 48 Hours Sepsis New/Unexplained Change in Mental Status Sepsis Action Taken by Nursing Oxygen Flow Rate - Titration 03/23/23 17:00 03/23/23 17:10 03/23/23 17:20 Temperature Temperature Source Pulse Rate 56 L 58 L 56 L Pulse Rate [Left Apical] Pulse Rate from SpO2 Sensor 56 L Respiratory Rate 21 23 25 H Respiratory Effort / Characteristics Respiratory Depth Respiratory Pattern Blood Pressure Blood Pressure [Right Arm] Blood Pressure Mean Blood Pressure Mean [Right Arm] Pulse Oximetry 94 Oxygen Delivery Method Oxygen Flow Rate Sepsis Recent Fever Within 48 Hours Sepsis New/Unexplained Change in Mental Status Sepsis Action Taken by Nursing Oxygen Flow Rate - Titration Laboratory Data 03/23/23 15:06 03/23/23 15:06 Lab Results 03/23/23 Range/Units 15:06 WBC 5.63 (4.8-10.8) K/ul RBC 4.29 (4.20-5.40) M/uL Hgb 13.3 (12.0-16.0) g/dl Hct 38.9 (37.0-47.0) % MCV 90.7 (80.0-100.0) fL MCH 31.0 (25.0-34.0) pg MCHC 34.2 (32.0-36.0) g/dL RDW Std Deviation 40.3 (36.4-46.3) fL RDW Coeff of [place] 12.2 (11.5-14.5) % Plt Count 271 (130-400) K/uL MPV 10.4 (9.4-12.4) fL Immature Gran % (Auto) 0.2 % Neut % (Auto) 71.8 % Lymph % (Auto) 19.5 % [place] % (Auto) 7.6 % Eos % (Auto) 0.7 % Baso % (Auto) 0.2 % Neut # (Auto) 4.04 (1.40-6.50) K/uL Lymph # (Auto) 1.10 L (1.20-3.40) K/uL [place] # (Auto) 0.43 (0.11-0.59) K/uL Eos # (Auto) 0.04 (0.00-0.50) K/uL Baso # (Auto) 0.01 (0.00-0.20) K/uL Immature Gran # (Auto) 0.01 (0.01-0.20) K/uL PT 12.3 H (9.0-12.0) Seconds INR 1.1 (0.9-1.1) APTT 30 (21-31) Seconds PTT Ratio 1.1 Sodium 131 L (136-145) mmol/L Potassium 5.1 (3.5-5.1) mmol/L Chloride 96 L (98-107) mmol/L Carbon Dioxide 28 (21-32) mmol/L Anion Gap 7 (3-11) BUN 14 (6-23) mg/dl Creatinine 0.65 (0.6-1.2) mg/dl Est Cr Clr Drug Dosing 54.6 ml/min Est GFR ( Amer) 93.8 ml/min Est GFR (Non-Af Amer) 81.0 ml/min BUN/Creatinine Ratio 21.5 H (10-20) Glucose 109 H (70-99(Fasting)) mg/dl Calcium 8.9 (8.6-10.3) mg/dl Troponin I High Sens 14.6 H (0-14) pg/ml SARS-CoV-2 (PCR) NEGATIVE (Negative) Influenza Type A (PCR) Positive A* (Neg) Influenza Type B (PCR) Negative (Neg) RSV (RT-PCR) Negative (Neg) Administered Medications Albuterol (Albut/Ipratrop 3mg/0.5mg Neb 3 Ml Vial) 3 ml NEB Q4R BIRGIT; Protocol Stop: 04/22/23 18:59 Last Admin: 03/23/23 19:00 Dose: 3 ml Documented By: REX Sodium Chloride (Nss) 500 mls @ 80 mls/hr IV .Q6H15M BIRGIT Stop: 03/23/23 23:59 Last Admin: 03/23/23 18:13 Dose: 80 mls/hr Documented By: CARA Discontinued Medications Albuterol (Albuterol 0.083% Nebu Soln 3 Ml Vial) 2.5 mg NEB NOW STA; Protocol Stop: 03/23/23 16:51 Last Admin: 03/23/23 17:37 Dose: 2.5 mg Documented By: KOBE Imaging Data Radiologist's Impression: Chest X-Ray 03/23/23 15:05 XR chest 1V portable HISTORY: Chest pain, nonspecific COMPARISON: Chest 05/16/2018. FINDINGS: No pneumothorax. No pleural effusions. Emphysema again noted. No focal lung consolidations to suggest a pneumonia. No evidence for pulmonary edema. Mild chronic interstitial thickening persists. The heart is normal in size. Degenerative changes within the shoulders. Stable 2 cm right suprahilar nodule. This appears to represent a calcified granuloma. IMPRESSION: No significant change compared to the prior study. No acute process. ACT 112: Negative or not required by law. Electronically signed by: Jamal Dougherty M.D. 03/23/2023 4:01 PM Discharge Plan Visit Data Chief Complaint: Shortness of Breath/Dyspnea Stated Complaint: SOB ED Provider: Jerry Whitten Discharge Problem: Influenza A, Elevated troponin, Shortness of breath Patient Disposition: Admitted As Inpatient Discharge Instructions Interventions: ED Discharge Assessment Last Done: 03/23/23 20:59
[2023-03-23 16:07] LABS: Influenza A virus by PCR Positive (Neg)
--- NOTE | 2023-03-23 16:57 | History & Physical Report ---
Date of Service March 23, 2023 Assessment & Plan (1) Influenza A: (2) Hypoxia: Plan: - Admit to med surg - Supportive care with mucinex, duonebs QID and Q2H prn, Hycodan cough syrup prn - On VS here, no documented hypoxia, patient reports her O2 sats were in the low 80s at outpatient office earlier today after walking in from the parking lot - Influenza swab positive on admission - WBC at time of admission = 5.63 - Afebrile here - CXR reviewed, showing emphysema, patient denies any smoking history or known history of such, will need to be followed as outpatient. - Started on Tamiflu (3) Hyponatremia: Plan: - NSS at 80 ml/hr x 1 bag, follow with am labs - likely due to decreased appetite/po intake (4) HLD (hyperlipidemia): Plan: -Continue statin therapy (5) Paroxysmal atrial fibrillation: Plan: -Rate controlled on metoprolol, anticoagulated on Eliquis (6) Hypothyroidism: Plan: -Continue levothyroxine DVT PPx: teds, scds Lines: 2 PIV FEN/GI: Allow heart healthy diet CODE: Full code Dispo: From home, likely to remain in the hospital x 1-2 days History of Present Illness Chief Complaint: Shortness of breath Primary Care Provider: Phil Zuniga MD This is an 87 yo F with PMhx of paroxysmal A-fib on Eliquis, episode of SVT, HLD, Hypothyroidism, who presents to the hospital with acute worsening shortness of breath and hypoxia per EMS. Pt has tested positive for influenza A here in the ER. Pt reports taking an antibiotic and an inhaler as outpatient last week, however it made her feel worse. Appears this was doxycycline and her biggest complaint was nausea and upset stomach with just two doses so stopped taking it. She has been coughing for about 3 weeks. This week feels like shortness of breath is worse on exertion when she walks. She went to her PCP office this morning, and by the time she walked into the office, her puse ox was reading in the low 80s. Pt was referred here to the ER due to hypoxia. She found relief with using the inhaler and states it makes her feels better. Pt has had less of an appetite recently. Denies nausea, vomiting, diarrhea. She denies known fever or other sick contacts. Pt notes at baseline she can perform all ADLs including getting herself dressed, bathe, cooking food, cleaning etc. Pt lives at home with her who is present at bedside. One of her sons is also present at bedside. Pt was not vaccinated against the flu this year. CXR is showing emphysema, denies smoking history. Denies familial lung issues. Allergies Allergy/AdvReac Type Severity Reaction Status Date / Time No Known Allergies Allergy Unknown Verified 03/23/23 16:59 Home Medications Medication Instructions Recorded Confirmed Type acetaminophen 500 mg tablet 1,000 mg PO BID 05/15/18 03/23/23 History ferrous sulfate 325 mg (65 mg 325 mg PO QAM 05/15/18 03/23/23 History iron) tablet fish, borage, flaxseed oils-omega 1 tab PO QAM 05/15/18 03/23/23 History 3,6,9 comb no.1 1,200 mg capsule ([place] 3-6-9) metoprolol succinate 25 mg 25 mg PO BID 05/15/18 03/23/23 History tablet,extended release 24 hr Congaplex 1 dose PO DIRECTED PRN Cold 03/23/23 03/23/23 History Symptoms albuterol sulfate 90 mcg/actuation 2 puff inhalation Q4H PRN 03/23/23 03/23/23 History aerosol inhaler WHEEZING/COUGH ammonium lactate 12 % topical cream 1 applic topical HS PRN DRY SKIN 03/23/23 03/23/23 History AREAS amoxicillin 500 mg capsule 2,000 mg PO DIRECTED PRN 1 HR 03/23/23 03/23/23 History PRIOR TO DENTAL PROCEDURES apixaban 2.5 mg tablet (Eliquis) 2.5 mg PO BID 03/23/23 03/23/23 History calcium carbonate 500 mg-vitamin 1 tab PO DAILY 03/23/23 03/23/23 History D3 3.125 mcg (125 unit) tablet cetirizine 10 mg tablet (Zyrtec) 10 mg PO DAILY 03/23/23 03/23/23 History cholecalciferol (vitamin D3) 25 37.5 mcg PO DAILY 03/23/23 03/23/23 History mcg (1,000 unit) tablet (Vitamin D3) diclofenac sodium 1 % topical gel 4 g topical BID PRN KNEE PAIN 03/23/23 03/23/23 History diphenhydramine 25 1 tab PO HS 03/23/23 03/23/23 History mg-acetaminophen 500 mg tablet (Tylenol PM Extra Strength) ipratropium bromide 21 mcg (0.03 2 spray intranasal BID PRN RHINITIS 03/23/23 03/23/23 History %) nasal spray levothyroxine 100 mcg tablet 100 mcg PO DAILYBB 03/23/23 03/23/23 History mupirocin 2 % topical ointment 1 applic topical DAILY PRN RIGHT 03/23/23 03/23/23 History CATHOLIC NEEDED Past Med/Surg History Medical History (Updated 03/23/23 @ 17:32 by Dea Hall PA-C) SVT (supraventricular tachycardia) HLD (hyperlipidemia) Cyst of finger Lumbar spondylosis Insomnia Hypothyroidism Paroxysmal atrial fibrillation Osteoarthritis Anemia HX DVT (deep venous thrombosis) POST BABY DELIVERY LEG-40 YRS AGO-NO ISSUES SINCE Tremor "WHEN WRITING-RUNS IN THE FAMILY" Cardiac murmur HX Surgical History H/O colonoscopy x 4-5 Last one was 3 years ago. History of tonsillectomy ~Age 5-10 History of cataract surgery R/L History of herniorrhaphy Umbilical X 2 History of repair of rotator cuff RIGHT Family History Sister Family history of diabetes mellitus Sister Family history of diabetes mellitus Brother Family history of diabetes mellitus Father Family history of diabetes mellitus Social History Smoking Status: Never smoker Second Hand Exposure: No; Do You Dip or Chew Tobacco: No; Hx Alcohol Use: Yes Alcohol type: wine Hx Substance Use: No Preferred Language: Kinyarwanda Communication Ability: Effective Breastfeeding Peer Counselor Required: No Beliefs That Will Affect Care: None marital status: Current Living Situation: Spouse Feels Safe at Home: Yes Assistive Devices: Walker Review of Systems Review of Systems: Constitutional: No fever, sweats or chills Eyes: No diplopia, no worsening or blurred vision ENT: normal hearing, no trouble swallowing Respiratory: + Cough, + occasional sputum, no dyspnea at rest + but does have dyspnea on exertion Cardiovascular: No chest pain, tightness or palpitations Abdomen: No pain, nausea, vomiting, diarrhea or constipation Musculoskeletal: + Chronic left knee joint pain, otherwise no calf pain, swelling Neurologic: No weakness, numbness/tingling, or balance problems, has a cane at home but does not use it Psychiatric: No anxiety or depression Skin: No rash or itch Physical Exam Physical Exam: General: awake, alert, no apparent distress, thin white female Head: Normocephalic, atraumatic ENT: PERRL, EOMI, no pharyngeal exudate, mucous membranes slightly dry Chest: + Wet sounding cough, diminished at bases bilaterally, faint wheeze, on room air Cardiac: Regular rate and rhythm, + holosystolic murmur, no JVD, normal peripheral pulses, good capillary refill Abdominal: NABS x 4 quadrants, soft, nondistended, nontender to palpation, no rebound or guarding Extremities: Normal inspection, no peripheral edema or erythema, calfs nontender to palpation Psych: Normal mood and affect Neuro: AAO x 3, strength intact bilaterally and rated 5/5, no motor deficits, speech is clear, no peripheral sensory deficits Results & Data Results & Data Vital Signs (Past 12 Hours) Vital Signs Temp Pulse Pulse Resp BP BP Pulse Ox 03/23/23 15:29 62 03/23/23 15:05 91 03/23/23 15:05 91 03/23/23 15:05 03/23/23 15:03 36.8 C 62 19 154/76 H 92 03/23/23 14:18 36.7 C 66 20 153/81 H 92 O2 Del Method O2 Flow Rate 03/23/23 15:29 03/23/23 15:05 Room Air 03/23/23 15:05 Room Air 0 03/23/23 15:05 Room Air 03/23/23 15:03 Room Air 03/23/23 14:18 Room Air Laboratory Results 03/23/23 15:06 WBC 5.63 RBC 4.29 Hgb 13.3 Hct 38.9 MCV 90.7 MCH 31.0 MCHC 34.2 RDW Std Deviation 40.3 RDW Coeff of [place] 12.2 Plt Count 271 MPV 10.4 Immature Gran % (Auto) 0.2 Neut % (Auto) 71.8 Lymph % (Auto) 19.5 [place] % (Auto) 7.6 Eos % (Auto) 0.7 Baso % (Auto) 0.2 Neut # (Auto) 4.04 Lymph # (Auto) 1.10 L [place] # (Auto) 0.43 Eos # (Auto) 0.04 Baso # (Auto) 0.01 Immature Gran # (Auto) 0.01 PT 12.3 H INR 1.1 APTT 30 PTT Ratio 1.1 Sodium 131 L Potassium 5.1 Chloride 96 L Carbon Dioxide 28 Anion Gap 7 BUN 14 Creatinine 0.65 Est Cr Clr Drug Dosing 54.6 Est GFR ( Amer) 93.8 Est GFR (Non-Af Amer) 81.0 BUN/Creatinine Ratio 21.5 H Glucose 109 H Calcium 8.9 Troponin I High Sens 14.6 H SARS-CoV-2 (PCR) NEGATIVE Influenza Type A (PCR) Positive A* Influenza Type B (PCR) Negative RSV (RT-PCR) Negative Diagnostic Findings Chest X-Ray 03/23/23 15:05 XR chest 1V portable HISTORY: Chest pain, nonspecific COMPARISON: Chest 05/16/2018. FINDINGS: No pneumothorax. No pleural effusions. Emphysema again noted. No focal lung consolidations to suggest a pneumonia. No evidence for pulmonary edema. Mild chronic interstitial thickening persists. The heart is normal in size. Degenerative changes within the shoulders. Stable 2 cm right suprahilar nodule. This appears to represent a calcified granuloma. IMPRESSION: No significant change compared to the prior study. No acute process. ACT 112: Negative or not required by law. Electronically signed by: Jamal Dougherty M.D. 03/23/2023 4:01 PM Code Status & VTE Plan Code Status Full code - discussed with pt at bedside Supervising Physician Co-Signing Physician Notes I have seen and discussed the case with the collaborating ADAN. I agree with the above H&P. I have reviewed and confirmed the patients medical history, the findings on physical examination, and the patients diagnosis and treatment plan with Rafael ARELLANO and agree with the information documented. In short, Ms. Patel is an 87 year old woman with hpothyroidism, pAF, HLD who was direct to ED for concerns of hypoxia as an outpatient and admitted for evaluation of progressive weakness iso Influenza A infection. Patient reports "weeks" of cough, that seems to fluctuate in intensity. She noted today was particularly severe, with hypoxia noted at OP doctors office in the 80s. She denies productive cough, fevers, chills or other symptoms. She states that she was prescribed a course of antibiotics last week, but she did not tolerate due to GI upset. On exam, patient was breathing comfortably and did not appear in distress. O2 saturation during exam in mid-high 90s on room air. constiutional: pleasant, no distress HEENT: MMM, NCAT CV: RRR RESP: no wheezing, good airway movement, no accessory muscle use GI NTND SKIN no rashes or lesions noted, no edema Plan #Influenza A #Weakness -Trial of tamiflu and symptomatic control -Given no wbc, no fever, no wheezing, will hold on abx/steroids at this time -Emphysema on imaging, reported benefit from inhalers -continue albuterol prn -OP follow up for PFTs -PT/OT Rest of plan as above
[2023-03-23] MEDS: ALBUTEROL 0.083% NEBU SOLN 3 ML VIAL NEB STA (17:37)
[2023-03-23] MEDS: SODIUM CHLORIDE 0.9% 500 ML IV SCH (18:13)
[2023-03-23] MEDS: ALBUT/IPRATROP 3MG/0.5MG NEB 3 ML VIAL NEB SCH (19:00)
[2023-03-23] MEDS ORDERED: HYDROcodone/HOMATROPINE SYRUP 5MG/1.5MG 5ML UDP PO PRN (21:32)
[2023-03-23] MEDS ORDERED: ONDANSETRON INJ 2 MG/ML 2 ML VIAL IV PRN (21:32)
[2023-03-23] MEDS ORDERED: ACETAMINOPHEN 325 MG TAB PO PRN (21:32)
[2023-03-23] MEDS ORDERED: DICLOFENAC SOD 1% GEL 100 GM TUBE EXT PRN (21:32)
[2023-03-23] MEDS ORDERED: IPRATROPIUM BROMIDE NASAL SPRAY 0.06% 15ML NAE PRN (21:43)
[2023-03-23 22:18] LABS: Albumin Globulin Ratio 1.4 (0.9-2); Albumin Level 3.9 gm/dl (3.4-5.0); Bilirubin,Total 0.5 mg/dl (0.2-1.0); Globulin 2.7 gm/dl (2.5-4.0); Total Protein 6.6 gm/dl (6.0-8.3)
[2023-03-23] MEDS: METOPROLOL SUCC 25MG EXT REL TAB PO SCH (23:07)
[2023-03-23] MEDS: OSELTAMIVIR PHOSPHATE SUSP 30 MG/5 ML UDP PO SCH (23:07)
[2023-03-23] MEDS: guaiFENesin 600 MG TABCR PO SCH (23:07)
[2023-03-23] MEDS: APIXABAN 2.5 MG TAB PO SCH (23:08)
--- OUTSIDE RECORDS SUMMARY | 2023-03-23 23:27 | External Medical Summary | Summary of Care ---
Author Name Unknown Organization [facility] Address [address] [place] [address] Phone [phone] Care Team Providers Care Electrocardiogram Technician Name Role Phone Phil Zuniga MD Primary Care Provider + Reason for Visit * Reason Onset Date Comments Medication Question 03/14/2023 Encounter Details Date Type Department Care Team (Late st Contact Info) Description 03/14/2023 Telephone General Internal Medicine [facility] [address] [place] [address] Phil Zuniga MD [address] [place] [address] Medication Question Allergies No known active allergiesdocumented as of this encounter (statuses as of 03/14/2023) Medications Medication Sig Dispensed Refills Start Date End Date Status acetaminophen (TYLENOL) 500 MG Tablet Take 1 Tablet by mouth every 8 hours as needed for Pain or Fever. 100 Tab 0 08/03/2018 Active amoxicillin (AMOXIL) 500 MG CapsuleIndications:H istory of atrial fibrillation,Paroxys mal atrial fibrillation (HCC),Nonrheumatic aortic valve stenosis Take 4 capsules one hour prior to dental appt 4 Cap 1 03/06/2019 Active diphenhydrAMINE-APAP (sleep) 25-500 MG Oral TabletIndications:Ch ronic insomnia Take 1 Tablet by mouth every night at bedtime. 0 03/25/2019 Active ferrous sulfate (FEOSOL) 325 (65 FE) MG Tablet Take 1 Tab by mouth daily. 90 Tab 3 11/14/2019 Active Calcium 500/Vitamin D 500-125 MG-UNIT Oral Tablet (Calcium Carbonate-Vitamin D) Take 1 Tab by mouth daily. 0 Active Cetirizine HCl 10 MG Oral Capsule Take 1 Capsule by mouth in the morning. 0 Active Ipratropium Lynn 0.03 % Nasal Solution (Atrovent) Administer into each nostril 2 Sprays 2 times a day as needed for Rhinitis. 30 mL 12 06/08/2021 Active Additional Information Patient not taking.Reported on 11/15/2022 Ammonium Lactate 12 % External CreamIndications:Xer osis cutis Apply topically to affected area as needed for Dry Skin. Apply to feet nightly for dry skin 385 g 5 07/07/2021 Active Diclofenac Sodium 1 % External Gel (Voltaren) Apply topically to affected area 4 g 2 times a day as needed for Pain. For knees. 350 g 1 10/11/2021 Active NATURAL SUPPLEMENT Take by mouth daily. Congaplex as needed for cold/flu symptoms 0 Active Apixaban 2.5 MG Oral Tablet (Eliquis)Indications :Paroxysmal atrial fibrillation (HCC),SVT (supraventricular tachycardia) Take 1 Tablet by mouth in the morning and 1 Tablet before bedtime. 180 Tablet 3 05/04/2022 Active Levothyroxine Sodium 100 MCG Oral Tablet (Levoxyl)Indications :Acquired hypothyroidism take 1 tablet by mouth every morning AT LEAST 30 MINUTES PRIOR TO BREAKFAST/OTHER MEDS 90 Tablet 3 05/28/2022 Active Vitamin D3 25 MCG (1000 UT) Oral Tablet (Vitamin D3)Indications:Vitam in D insufficiency take 3 tablet by mouth once daily 270 Tablet 0 06/24/2022 Active Fluorouracil 5 % External Cream (Efudex) Apply to site on right congregation twice daily x 6 weeks 40 g 1 07/19/2022 Active Mupirocin 2 % External Ointment (Bactroban) Apply to affected area at right congregation daily as needed 22 g 0 08/25/2022 Active Jordan-3 Fatty Acids 1000 MG Oral Capsule (OMEGA-3) Take 1 Capsule by mouth in the morning. 30 Capsule 0 11/03/2022 Active Metoprolol Succinate ER 25 MG Oral Tablet Extended Release 24 Hour (toPROL XL)Indications:Parox ysmal atrial fibrillation (HCC),SVT (supraventricular tachycardia) take 1 tablet by mouth twice a day 180 Tablet 3 11/14/2022 Active documented as of this encounter (statuses as of 03/14/2023) Active Problems Problem Noted Date Diagnosed Date SVT (supraventricular tachycardia) 05/24/2021 Mild aortic stenosis 05/14/2020 History of vertebral compression fracture 2020 Overview: L2 Generalized osteoarthritis 01/30/2018 PAF (paroxysmal atrial fibrillation) 11/01/2017 Acquired hypothyroidism 03/20/2017 High risk for fracture due to osteoporosis by DE XA scan 03/23/2016 Hyperlipidemia 03/17/2016 Celiac disease 07/13/2015 Overview: 11/09/2015: EGD biopsy confirms celiac disease History of nonmelanoma skin cancer 09/30/2011 Overview: SCCIS right cheek 10/11 documented as of this encounter (statuses as of 03/14/2023) Resolved Problems Problem Noted Date Diagnosed Date Resolved Date History of atrial fibrillation 11/01/2017 05/24/2021 Prediabetes 05/16/2017 03/22/2018 Overview: Per Prediabetes protocol #1 residential current use of ant icoagulant therapy 03/19/2013 03/17/2016 Overview: ICD-10 update of inactive term Anticoagulation management encounter 03/19/2013 03/17/2016 Postmenopausal status, age-related 01/07/2009 01/30/2018 Benign neoplasm of colon 11/12/2007 Overview: 03/11/2015: 5 mm adenoma sigmoid colon, repeat 3 years 02/07/2014: Rectal polyp adenoma removed, no recurrent adenoma, repeat in one year 07/29/2013: 30 mm rectal tubulovillous adenoma excised, repeat February, 11/12/2007: hyperplastic; repeat colonoscopy in 5 yrs Dyslipidemia, goal to be determined 04/28/2006 03/17/2016 documented as of this encounter (statuses as of 03/14/2023) Immunizations Name Administration Dates Next Due COVID-19 mRNA, LNP-s, No Pre serve, 2-Dose Series (Pfizer) 06/20/2020,05/30/2020 Pneumococcal Polysaccharide PPV23 (Pneumovax) Season Influenza, Quad, PF, Adjuvanted, 65+ Yrs, IM (FLUAD) 01/08/2020 Seasonal Influenza, Quadrivalent Hd (Fluzone Hd) 01/10/2022 Seasonal Influenza, Trivalent, Adjuvanted, 65+ y rs 01/11/2019,02/12/2018 TDAP (age 10 and older)(Boostrix) 08/23/2013 documented as of this encounter Social History Tobacco Use Types Packs/Day Years Used Date Smoking Tobacco: Never Smokeless Tobacco: Never Alcohol Use Standard Drinks/Week Comments Yes 0 (1 standard drink = 0.6 oz pur e alcohol) occ wine PHQ-2 Answer Date Recorded PHQ Adult Total Score 1 05/25/2022 Hunger Vital Sign Answer Date Recorded Within the past 12 months, y ou worried that your food would run out before you got the money to buy more. Never true 05/25/19 23 Within the past 12 months, t he food you bought just didn't last and you didn't have money to get more. Never true 05/25/2022 Sex and Gender Information Value Date Recorded Sex Assigned at Female 07/31/2018 11:36 AM EDT Gender Identity Female 07/31/2018 11:36 AM EDT Sexual Orientation Straight 07/31/2018 11 :36 AM EDT Job Start Date Occupation Industry Not on file Not on file Not on file documented as of this encounter Miscellaneous Notes * Addendum Note - Ramon Bolanos RPh - 03/14/2023 9:56 AM ESTAddended by: RAMON BOLANOS on: 03/14/2023 09:56 AM Modules accepted: Orders * Telephone Encounter - Ramon Bolanos RPh - 03/14/2023 9:51 AM EST Patient calling with complaints of a semi-productive cough. Worse in the evenings. Onset - yesterday. Has not tried anything yet. Requesting OTC remedy. Denies fever, chills, body aches, SOB, wheezing. Advised patient okay to take Mucinex-DM OTC and push fluids. Follow up if symptoms persist or worsen. Thank you, Ramon Bolanos, PharmD Clinical Pharmacist [facility] 03/14/23 9:55 AM [phone] * Telephone Encounter - Becky Gutierrez CPhT - 03/14/2023 9:49 AM EST Pt has a head cold and a cough- pt wants to know what she can take OTC Warm transferred to ramon Thank you, Becky Gutierrez CPhT II Plaster Helper [facility] (Formerly Telepharm[facility]) 03/14/2023, 9:50 AM documented in this encounter Plan of Treatment Upcoming Encounters Date Type Department Care Team (Late st Contact Info) Description 05/04/2023 3:00 PM EST [address] [place] [address] Lauren Vargas MD [address] [place] [address] [place] [id number] 05/17/2023 8:30 AM EST Office Visit Cardiology, [facility] [address] [facility] [place] [address] Surjit Cristina PA-C [address] [place] [id number] 05/30/2023 8:40 AM EST Office Visit General Internal Medicine [facility] [address] [facility] [place] [address] Phil Zuniga MD [address] [facility] [place] [address] Health Maintenance Due Date Last Done Comments Zoster Vaccines (1 of 2) 06/26/1987 *BISPHONATE OR OTHER ACCEPTABLE MEDICATION NEEDED FOR OSTEOPOROSIS (REFER TO SMARTSET #1146) 03/25/2016 DXA Scan 03/21/2018 03/21/2016, 08/2006, 07/06/2006, Additional history exists Pneumococcal Vaccine: 65+ Years (2 - PCV) 04/27/2019 04/27/2018 COVID-19 Vaccine (3 - 2022- season) 2022 06/20/2020, 05/30/2020 Depression Screening 05/25/2023 05/25/2022 TSH 05/25/2023 05/25/2022, 11/02, 09/24/2021, Additional history exists DTaP,Tdap,and Td Vaccines (2 - Td or Tdap) 08/24/2023 08/23/2013 COLONOSCOPY-EVERY 3 YRS AGES 18-100 Discontinued 03/11/2015, 03/11/2015, 02/07/2014, Additional history exists VITAMIN D LEVEL ONCE IN A LIFETIME-USE SMARTSET# [id number] Completed 05/25/2022, 08/13/2021, 05/26/2021, Additional history exists GARDASIL-HPV IMMUNIZATION SERIES Aged Out No longer eligible based on patient's age to complete this topic Hepatitis B Aged Out No longer eligi ble based on patient's age to complete this topic MENINGOCOCCAL (MENACTRA/MENVEO) Aged Out No longer eligible based on patient's age to complete this topic documented as of this encounter Medical Devices Implanted Type Area Canary Raiser Device Identifier Shelf Expiration Date Model / Serial / Lot [id number] 24.0d Io Lens Implanted:Qty: 1 on 04/17/2014 by Beau Pfeiffer MD at OR [facility] Right: Eye [employer] 05/03/2016 [id number] / [id number] / documented as of this encounter Advance Directives Latest Code Status on File Code Status Date Activated Date Inactivated Comments Full Code 04/17/2014 7:19 AM 04/17/2014 1:19 PM This order reflects the patients wishes and were consensually agreed upon. Care Teams Electrocardiogram Technician Relationship Specialty Start Date End Date Phil Zuniga MD [address] [place] [address] PCP - General Internal Medicine 03/17/16 documented as of this encounter
--- OUTSIDE RECORDS SUMMARY | 2023-03-23 23:27 | External Medical Summary | Summary of Care ---
Author Name Unknown Organization [facility] Address [address] [place] [address] Phone [phone] Care Team Providers Care Wet Finisher Wool Name Role Phone Phil Zuniga MD Primary Care Provider + Reason for Visit * Reason Onset Date Comments Medication Question 03/14/2023 Encounter Details Date Type Department Care Team (Late st Contact Info) Description 03/14/2023 Telephone General Internal Medicine [facility] [address] [place] [address] Phil Zuniga MD [address] [place] [address] Medication Question Allergies No known active allergiesdocumented as of this encounter (statuses as of 03/15/2023) Medications Medication Sig Dispensed Refills Start Date [...] mouth in the morning. 0 Active Ipratropium [place] 0.03 % Nasal Solution (Atrovent) Administer into [...] Cream (Efudex) Apply to site on right adventist twice daily x 6 weeks 40 g 1 07/19/2022 Active Mupirocin 2 % External Ointment (Bactroban) Apply to affected area at right adventist daily as needed 22 g 0 08/25/2022 Active [place]-3 Fatty Acids 1000 MG Oral Capsule (OMEGA-3) Take 1 Capsule by mouth in the morning. 30 Capsule 0 11/03/2022 Active Metoprolol Succinate ER 25 MG Oral Tablet Extended Release 24 Hour (toPROL XL)Indications:Parox ysmal atrial fibrillation (HCC),SVT (supraventricular tachycardia) take 1 tablet by mouth twice a day 180 Tablet 3 11/14/2022 Active documented as of this encounter (statuses as of 03/15/2023) Active Problems Problem Noted Date Diagnosed Date [...] as of this encounter (statuses as of 03/15/2023) Resolved Problems Problem Noted Date Diagnosed Date Resolved Date History of atrial fibrillation 11/01/2017 05/24/2021 Prediabetes 05/16/2017 03/22/2018 Overview: Per Prediabetes protocol #1 custodial current use of ant icoagulant therapy 03/19/2013 [...] as of this encounter (statuses as of 03/15/2023) Immunizations Name Administration Dates Next Due COVID-19 [...] as of this encounter Miscellaneous Notes * Telephone Encounter - Kaelyn Garcia OSA - 03/15/2023 3:32 PM EST Pt son calling back in and is requesting to speak to nurse regarding pt symptoms. * Telephone Encounter - Lidia Reece OSA - 03/15/2023 1:37 PM EST Son calling, states mother is not eating, only drinking has been doing a lot of sleeping. Pt is notimproving, son is asking to be advised on how to treat or should she go to the ED? Please advise. Pt has Cough, congestion, and runny nose. Pt has been like this since Monday. * Addendum Note - Ramon Bolanos [facility] - 03/14/2023 9:56 AM ESTAddended by: RAMON BOLANOS on: 03/14/2023 09:56 AM Modules accepted: Orders * Telephone Encounter - Ramon Bolanos [facility] - 03/14/2023 9:51 AM EST Patient calling [...] Clinical Pharmacy Services ([facility]) 03/14/23 9:55 AM [phone] * Telephone Encounter - Becky Gutierrez CPhT - 03/14/2023 9:49 AM EST Pt has a head cold and a cough- pt wants to know what she can take OTC Warm transferred to [facility] Thank you, Becky Gutierrez CPhT II Controls Technician Centralized Clinical Pharmacy Services ([facility]PS) (Formerly Telepharmacy) 03/14/2023, 9:50 AM documented in this encounter Plan of Treatment Upcoming Encounters Date Type Department Care Team (Late st Contact Info) Description 05/04/2023 3:00 PM EST Office Visit Dermatology [facility] Polanco [address] [place] [address] Lauren Finch MD 200 [facility] [place], [place] [address] 05/17/2023 8:30 AM EST Office Visit Cardiology, [facility] [address] [place] [address] Surjit Cristina PA-C [address] [place] [address] 05/30/2023 8:40 AM EST Office Visit General Internal Medicine [facility] 200 [facility] [place] [address] Phil Zuniga MD 200 [facility] [place] [address] Health Maintenance Due Date Last Done Comments [...] D LEVEL ONCE IN A LIFETIME-USE SMARTSET# [id number] Completed 05/25/2022, 08/13/2021, 05/26/2021, Additional history exists [...] this encounter Medical Devices Implanted Type Area Web Site Manager Device Identifier Shelf Expiration Date Model / Serial / Lot [id number] 24.0d Io Lens Implanted:Qty: 1 on 04/17/2014 by Beau Pfeiffer MD at OR [facility] Right: Eye [employer]OM[employer] 05/03/2016 [id number]. [id number] / [id number] / documented as of this encounter Advance Directives Latest Code Status on File Code Status Date Activated Date Inactivated Comments Full Code 04/17/2014 7:19 AM 04/17/2014 1:19 PM This order reflects the patients wishes and were consensually agreed upon. Care Teams Wet Finisher Wool Relationship Specialty Start Date End Date Phil Zuniga MD 200 [place] [address] PCP - General Internal Medicine 03/17/16 documented as of this encounter
--- OUTSIDE RECORDS SUMMARY | 2023-03-23 23:27 | External Medical Summary | Summary of Care ---
Author Name Unknown Organization [facility] Address [address] [place] [address] Phone [phone] Care Team Providers Care Primer Expeditor And Drier Name Role Phone Phil Zuniga MD Primary Care Provider + Reason for Visit * Reason Onset Date Comments Medication Question 03/14/2023 Encounter Details Date Type Department Care Team (Late st Contact Info) Description 03/14/2023 Telephone General Internal Medicine [facility] [address] [place] [address] Phil Zuniga MD [address] [place] [address] Medication Question Allergies No known active allergiesdocumented [...] mouth in the morning. 0 Active Ipratropium [place] 0.03 % Nasal Solution (Atrovent) Administer into [...] Cream (Efudex) Apply to site on right anabaptism twice daily x 6 weeks 40 g 1 07/19/2022 Active Mupirocin 2 % External Ointment (Bactroban) Apply to affected area at right anabaptism daily as needed 22 g 0 08/25/2022 Active [place]-3 Fatty Acids 1000 MG Oral Capsule (OMEGA-3) [...] 05/16/2017 03/22/2018 Overview: Per Prediabetes protocol #1 long-term current use of ant icoagulant therapy 03/19/2013 [...] Clinical Pharmacy Services ([facility]) 03/14/23 9:55 AM [phone] * Telephone Encounter - Becky Gutierrez CPhT - 03/14/2023 9:49 AM EST Pt has a head cold and a cough- pt wants to know what she can take OTC Warm transferred to [facility] Thank you, Becky Gutierrez CPhT II Gold Leaf Printer Centralized Clinical Pharmacy Services ([facility]) (Formerly Telepharmacy) 03/14/2023, 9:50 AM documented in this encounter Plan of Treatment Upcoming Encounters Date Type Department Care Team (Late st Contact Info) Description 05/04/2023 3:00 PM EST Office Visit [address]ermatology [address] [place] [address] Lauren Vargas MD [address] [place] [address] [place] [address] 05/17/2023 8:30 AM EST Office Visit Cardiology, [facility] 132 [facility] [place] [address] Surjit Cristina PA-C [address] [place] [address] 05/30/2023 8:40 AM EST Office Visit General Internal Medicine [facility] 200 [facility] [place] [address] Phil Zuniga MD 200 [facility] [place] [address] Health Maintenance Due Date Last Done Comments [...] D LEVEL ONCE IN A LIFETIME-USE SMARTSET# [id number] Completed 05/25/2022, 08/13/2021, 05/26/2021, Additional history exists [...] this encounter Medical Devices Implanted Type Area Cutter In Device Identifier Shelf Expiration Date Model / Serial / Lot [id number] 24.0d Io Lens Implanted:Qty: 1 on 04/17/2014 by Beau Pfeiffer MD at OR [facility] Right: Eye [employer] LOMB 05/03/2016 [id number]. [id number] / [id number] / documented as of this encounter Advance Directives Latest Code Status on File Code Status Date Activated Date Inactivated Comments Full Code 04/17/2014 7:19 AM 04/17/2014 1:19 PM This order reflects the patients wishes and were consensually agreed upon. Care Teams Primer Expeditor And Drier Relationship Specialty Start Date End Date Phil Zuniga MD [address] [place] [address] PCP - General Internal Medicine 03/17/16 documented as of this encounter
--- OUTSIDE RECORDS SUMMARY | 2023-03-23 23:27 | External Medical Summary | Summary of Care ---
Author Name Unknown Organization [facility] Address [address] [place] [address] Phone [phone] Care Team Providers Care Propulsion Generator Repairer Name Role Phone Phil Zuniga MD Primary Care Provider + Reason for Visit * Reason Onset Date Comments Medication Question 03/14/2023 Encounter Details Date Type Department Care Team (Late st Contact Info) Description 03/14/2023 Telephone General Internal Medicine [facility] 200 [place] [address] hPil Zuniga MD 200 [place] [address] Medication Question Allergies No known active allergiesdocumented [...] mouth in the morning. 0 Active Ipratropium [place] 0.03 % Nasal Solution (Atrovent) Administer into [...] Cream (Efudex) Apply to site on right hindu twice daily x 6 weeks 40 g 1 07/19/2022 Active Mupirocin 2 % External Ointment (Bactroban) Apply to affected area at right hindu daily as needed 22 g 0 08/25/2022 Active [place]-3 Fatty Acids 1000 MG Oral Capsule (OMEGA-3) [...] 05/16/2017 03/22/2018 Overview: Per Prediabetes protocol #1 [facility] current use of ant icoagulant therapy 03/19/2013 [...] Monday. * Addendum Note - Ramon Bolanos [facility] - 03/14/2023 9:56 AM ESTAddended by: RAMON BOLANOS on: 03/14/2023 09:56 AM Modules accepted: Orders * Telephone Encounter - Ramon Bolanos [facility] - 03/14/2023 9:51 AM EST Patient calling [...] Clinical Pharmacy Services ([facility]) 03/14/23 9:55 AM [phone] * Telephone Encounter - Becky Gutierrez CPhT - 03/14/2023 9:49 AM EST Pt has a head cold and a cough- pt wants to know what she can take OTC Warm transferred to [facility] Thank you, Becky Gutierrez CPhT II Screw Machine Operator Single Spindle Centralized Clinical Pharmacy Services ([facility]) (Formerly Telepharmacy) 03/14/2023, 9:50 AM documented in this encounter Plan of Treatment Upcoming Encounters Date Type Department Care Team (Late st Contact Info) Description 05/04/2023 3:00 PM EST Office Visit Dermatology Jyoti Polanco [address] [place] [address] Lauren Finch MD 200 [facility] [place], [place] [address] 05/17/2023 8:30 AM EST Office Visit Cardiology, [facility] [address] [place] [address] Surjit Cristina PA-C [address] [place] [address] 05/30/2023 8:40 AM EST Office Visit General Internal Medicine [facility] 200 [facility] [place] [address] Phil Zuniga MD 200 [facility] [place] [address] Health Maintenance Due Date Last Done Comments [...] D LEVEL ONCE IN A LIFETIME-USE SMARTSET# [id number] Completed 05/25/2022, 08/13/2021, 05/26/2021, Additional history exists [...] this encounter Medical Devices Implanted Type Area Jewel Bearing Maker Device Identifier Shelf Expiration Date Model / Serial / Lot [id number] 24.0d Io Lens Implanted:Qty: 1 on 04/17/2014 by Beau Pfeiffer MD at OR [facility] Right: Eye [employer]CH [employer] LOMB 05/03/2016 [id number]. [id number] / [id number] / documented as of this encounter Advance Directives Latest Code Status on File Code Status Date Activated Date Inactivated Comments Full Code 04/17/2014 7:19 AM 04/17/2014 1:19 PM This order reflects the patients wishes and were consensually agreed upon. Care Teams Propulsion Generator Repairer Relationship Specialty Start Date End Date Phil Zuniga MD 200 [place] [address] PCP - General Internal Medicine 03/17/16 documented as of this encounter
--- OUTSIDE RECORDS SUMMARY | 2023-03-23 23:27 | External Medical Summary | Summary of Care ---
Author Name Unknown Organization [facility] Address [address] [place] [facility] [place] [address] Phone [phone] Care Team Providers Care Pest Management Supervisor Name Role Phone Phil Zuniga MD Primary Care Provider + Reason for Visit * Reason Onset Date Comments Medication Question 03/14/2023 Encounter Details Date Type Department Care Team (Late st Contact Info) Description 03/14/2023 Telephone General Internal Medicine [facility] 200 [place] [address] Phil Zuniga MD 200 [place] [address] Medication Question Allergies No known active allergiesdocumented [...] mouth in the morning. 0 Active Ipratropium [place] 0.03 % Nasal Solution (Atrovent) Administer into [...] Cream (Efudex) Apply to site on right gnosticism twice daily x 6 weeks 40 g 1 07/19/2022 Active Mupirocin 2 % External Ointment (Bactroban) Apply to affected area at right gnosticism daily as needed 22 g 0 08/25/2022 Active [place]-3 Fatty Acids 1000 MG Oral Capsule (OMEGA-3) [...] 05/16/2017 03/22/2018 Overview: Per Prediabetes protocol #1 [facility] current use of ant icoagulant therapy 03/19/2013 [...] encounter Miscellaneous Notes * Telephone Encounter - Betty Cardenas RN - 03/15/2023 3:41 PM EST Please see separate certified respiratory therapist Encounter. Betty Cardenas, RN, BSN certified respiratory therapist Nurse Navigator * Telephone Encounter - Kaelyn Garcia OSA [...] this since Monday. * Addendum Note - Alejandra Bolanos [facility] - 03/14/2023 9:56 AM ESTAddended by: ALEJANDRA BOLANOS on: 03/14/2023 09:56 AM Modules accepted: Orders Electronically signed by Alejandra Bolanos [facility] at 03/14/2023 9:56 AM EST * Telephone Encounter - Alejandra Bolanos [facility] - 03/14/2023 9:51 AM EST Patient calling with complaints of a semi-productive cough. Worse in the evenings. Onset - yesterday. Has not tried anything yet. Requesting OTC remedy. Denies fever, chills, body aches, SOB, wheezing. Advised patient okay to take Mucinex-DM OTC and push fluids. Follow up if symptoms persist or worsen. Thank you, Alejandra Bolanos, PharmD Clinical Pharmacist Centralized Clinical Pharmacy Services ([facility]) 03/14/23 9:55 AM [phone] Electronically signed by Alejandra Bolanos [facility] at 03/14/2023 9:56 AM EST * Telephone Encounter - Becky Gutierrez CPhT - 03/14/2023 9:49 AM EST Pt has a head cold and a cough- pt wants to know what she can take OTC Warm transferred to [facility] Thank you, Becky Gutierrez CPhT II Superintendent Overhead Distribution Centralized Clinical Pharmacy Services ([facility]) (Formerly Telepharmacy) 03/14/2023, 9:50 AM documented in this encounter Plan of Treatment Upcoming Encounters Date Type Department Care Team (Late st Contact Info) Description 03/17/2023 9:40 AM EST Office Visit General Internal Medicine [facility] 200 [facility] [place] [address] Malia Kuhn MD 200 [facility] [place] [address] 05/04/2023 3:00 PM EST Office Visit Dermatology [facility] 200 [facility] [place] [address] Lauren Vargas MD 200 [facility] [place] [address] 05/17/2023 8:30 AM EST Office Visit Cardiology, [facility] [address] [facility] [place] [address] Surjit Cristina PA-C [address] [place] [address] 05/30/2023 8:40 AM EST Office Visit General Internal Medicine [facility] 200 [facility] [place] [address] Phil Zuniga MD 200 [facility] [place] [address] Health Maintenance Due Date Last Done Comments Zoster Vaccines (1 of 2) 06/26/1987 *BISPHONATE OR OTHER ACCEPTABLE MEDICATION NEEDED FOR OSTEOPOROSIS (REFER TO SMARTSET #1146) 03/25/2016 DXA Scan 03/21/2018 03/21/2016, 0408/2006, 07/06/2006, Additional history exists Pneumococcal Vaccine: 65+ Years (2 - PCV) 04/27/2019 04/27/2018 COVID-19 Vaccine (3 - 2022-24 season) 2022 06/20/2020, 05/30/2020 Depression Screening 05/25/2023 05/25/2022 TSH 05/25/2023 05/25/2022, 0807/2021, 09/24/2021, Additional history exists DTaP,Tdap,and Td Vaccines (2 - Td or Tdap) 08/24/2023 08/23/2013 COLONOSCOPY-EVERY 3 YRS AGES 18-100 Discontinued 03/11/2015, 03/11/2015, 02/07/2014, Additional history exists VITAMIN D LEVEL ONCE IN A LIFETIME-USE SMARTSET# [id number] Completed 05/25/2022, 08/13/2021, 05/26/2021, Additional history exists [...] this encounter Medical Devices Implanted Type Area Lead Radiologic Technologist Device Identifier Shelf Expiration Date Model / Serial / Lot [id number] 24.0d Io Lens Implanted:Qty: 1 on 04/17/2014 by Beau Pfeiffer MD at OR [facility] Right: Eye [employer] LOMB 05/03/2016 [id number]. [id number] / [id number] / documented as of this encounter Advance Directives Latest Code Status on File Code Status Date Activated Date Inactivated Comments Full Code 04/17/2014 7:19 AM 04/17/2014 1:19 PM This order reflects the patients wishes and were consensually agreed upon. Care Teams Pest Management Supervisor Relationship Specialty Start Date End Date Phil Zuniga MD 200 [facility] [address] PCP - General Internal Medicine 03/17/16 documented as of this encounter
--- OUTSIDE RECORDS SUMMARY | 2023-03-23 23:27 | External Medical Summary | Summary of Care ---
Author Name Unknown Organization [facility] Address [address] [place] [address] Phone [phone] Care Team Providers Care Tennis Camp Instructor Name Role Phone Phil Zuniga MD Primary Care Provider + Reason for Visit * Reason Onset Date Comments Medication Refill 03/20/2023 Encounter Details Date Type Department Care Team (Late st Contact Info) Description 03/20/2023 Telephone General Internal Medicine [facility] 200 [place] [address] Malia Kuhn MD 200 [place] [address] Medication Refill Allergies No known active allergiesdocumented as of this encounter (statuses as of 03/20/2023) Medications Medication Sig Dispensed Refills Start Date [...] mouth in the morning. 0 Active Ipratropium [place] 0.03 % Nasal Solution (Atrovent) Administer into each nostril 2 Sprays 2 times a day as needed for Rhinitis. 30 mL 12 06/08/2021 Active Ammonium Lactate 12 % External CreamIndications:Xer osis [...] Cream (Efudex) Apply to site on right taoism twice daily x 6 weeks 40 g 1 07/19/2022 Active Mupirocin 2 % External Ointment (Bactroban) Apply to affected area at right taoism daily as needed 22 g 0 08/25/2022 Active [place]-3 Fatty Acids 1000 MG Oral Capsule (OMEGA-3) Take 1 Capsule by mouth in the morning. 30 Capsule 0 11/03/2022 Active Metoprolol Succinate ER 25 MG Oral Tablet Extended Release 24 Hour (toPROL XL)Indications:Parox ysmal atrial fibrillation (HCC),SVT (supraventricular tachycardia) take 1 tablet by mouth twice a day 180 Tablet 3 11/14/2022 Active Proventil HFA 108 (90 Base) MCG/ACT Inhalation Aerosol SolutionIndications: URI with cough and congestion,Suspected COVID-19 virus infection Inhale 2 Puffs by mouth every 4 hours as needed for Wheezing or Cough. 18 g 0 03/17/2023 Active Doxycycline Hyclate 100 MG Oral CapsuleIndications:U RI with cough and congestion,Suspected COVID-19 virus infection Take 1 Capsule by mouth in the morning and 1 Capsule before bedtime. Do all this for 7 days. Take for 7 days. 14 Capsule 0 03/17/2023 03/24/2023 Active documented as of this encounter (statuses as of 03/20/2023) Active Problems Problem Noted Date Diagnosed Date [...] as of this encounter (statuses as of 03/20/2023) Resolved Problems Problem Noted Date Diagnosed Date Resolved Date History of atrial fibrillation 11/01/2017 05/24/2021 Prediabetes 05/16/2017 03/22/2018 Overview: Per Prediabetes protocol #1 manager terminal current use of ant icoagulant therapy 03/19/2013 [...] as of this encounter (statuses as of 03/20/2023) Immunizations Name Administration Dates Next Due COVID-19 [...] encounter Miscellaneous Notes * Telephone Encounter - Jaci Dias LPN - 03/20/2023 2:09 PM EST Patient aware and verbalized understanding Jaci Dias LPN * Telephone Encounter - Phil Zuniga MD - 03/20/2023 12:24 PM EST Noted, cont hold abx, contact us if worsening * Telephone Encounter - Manisha Shepherd CMA - 03/20/2023 12:22 PM EST Patient aware and verbalized understanding, states she stopped taking the doxycycline on Monday due to side effects. Patient states she is still coughing but not as much as she was. * Telephone Encounter - Phil Zuniga MD - 03/20/2023 10:31 AM EST If she is feeling better then can stop abx, but if has worsening or persistent symptoms, needs to let us know * Telephone Encounter - Mary Lou Staples [facility] - 03/20/2023 10:12 AM EST Spoke to patient regarding concerns with Doxycycline and Proventil. Patient states Doxycycline madeher very nauseous so she stopped taking it. Patient did not try Proventil yet as she is afraid it will cause dizziness. Patient was treated on 03/17/23 for a URI with cough - chest X-ray is clear and patient states she is feeling slightly better- she states she feels like she has a cold. I advised patient the Proventil inhaler is only to be used as needed for shortness of breath or wheezing- patient states her breathing is okay right now- advised she may try the inhaler if she feels she needs it and to monitor for any side effects. I advised infection may be viral and she may not need antibiotic- she is requesting I send message to PCP (not Dr. Kuhn) to check if it is okay to stay off antibiotic. Please advise if okay for patient to stop Doxycycline and I will call her back to advise. Thank You Mary Lou Staples PharmD Clinical Pharmacist Centralized Clinical Pharmacy Services ([facility]PS) (formerly Telepharmacy) [phone] / [phone] 03/20/2023, 10:21 AM * Telephone Encounter - Angeline Jeong PHARM Tech - 03/20/2023 10:05 AM EST Pt called stating that she saw On Monday. She was prescribed doxycycline and proventil inhaler. Pt is concerned about side effects Warm transfer to [facility] Thank you, Angeline Jeong biodiesel processing technician Landscaping Manager II Centralized Clinical Pharmacy Services([facility]PS)(Formerly Telepharmacy) 03/20/2023,10:17 AM documented in this encounter Plan of Treatment Upcoming Encounters Date Type Department Care Team (Late st Contact Info) Description 05/04/2023 3:00 PM EST Office Visit Dermatology [facility] [address] [place] [address] Lauren Vargas MD [address] [place] [address] 05/17/2023 8:30 AM EST Office Visit Cardiology, [facility] [address] [place] [address] Surjit Cristina PA-C [address] [place] [address] 05/30/2023 8:40 AM EST Office Visit General Internal Medicine [facility] [address] [place] [address] Phil Zuniga MD [address] [place] [address] Health Maintenance Due Date Last Done Comments [...] D LEVEL ONCE IN A LIFETIME-USE SMARTSET# 65097 Completed 05/25/2022, 08/13/2021, 05/26/2021, Additional history exists [...] this encounter Medical Devices Implanted Type Area Barkeep Device Identifier Shelf Expiration Date Model / Serial / Lot [id number] 24.0d Io Lens Implanted:Qty: 1 on 04/17/2014 by Beau Pfeiffer MD at OR [facility] Right: Eye [employer]OM[employer] 05/03/2016 [id number]. [id number] / [id number] / documented as of this encounter Advance Directives Latest Code Status on File Code Status Date Activated Date Inactivated Comments Full Code 04/17/2014 7:19 AM 04/17/2014 1:19 PM This order reflects the patients wishes and were consensually agreed upon. Care Teams Tennis Camp Instructor Relationship Specialty Start Date End Date Phil Zuniga MD 200 [place] [address] PCP - General Internal Medicine 03/17/16 documented as of this encounter
--- OUTSIDE RECORDS SUMMARY | 2023-03-23 23:27 | External Medical Summary | Summary of Care ---
Author Name Unknown Organization [facility] Address [address] [place] [address] Phone [phone] Care Team Providers Care Grain Elevator Clerk Name Role Phone Phil Zuniga MD Primary Care Provider + Reason for Visit * Reason Onset Date Comments Medication Question 03/14/2023 Encounter Details Date Type Department Care Team (Late st Contact Info) Description 03/14/2023 Telephone General Internal Medicine [facility] [address] [place] [address] Phil Zuniga MD [address] [place] [address] Medication Question Allergies No known active allergiesdocumented [...] mouth in the morning. 0 Active Ipratropium [place] 0.03 % Nasal Solution (Atrovent) Administer into [...] Cream (Efudex) Apply to site on right restorationism twice daily x 6 weeks 40 g 1 07/19/2022 Active Mupirocin 2 % External Ointment (Bactroban) Apply to affected area at right restorationism daily as needed 22 g 0 08/25/2022 Active Burt-3 Fatty Acids 1000 MG Oral Capsule (OMEGA-3) [...] 05/16/2017 03/22/2018 Overview: Per Prediabetes protocol #1 senior living current use of ant icoagulant therapy 03/19/2013 [...] encounter Miscellaneous Notes * Telephone Encounter - Lidia Reece OSA [...] since Monday. * Addendum Note - Ramon Bolanos, [facility] - 03/14/2023 9:56 AM ESTAddended by: RAMON BOLANOS on: 03/14/2023 09:56 AM Modules accepted: Orders * Telephone Encounter - Ramon Bolanos RP - 03/14/2023 9:51 AM EST Patient calling [...] [facility] ([facility]) 03/14/23 9:55 AM [phone] * Telephone Encounter - Becky Gutierrez CPhT - 03/14/2023 9:49 AM EST Pt has a head cold and a cough- pt wants to know what she can take OTC Warm transferred to [facility] Thank you, Becky Gutierrez CPhT II Industry Consultant [facility] ([facility]) (Formerly Telepharmacy) 03/14/2023, 9:50 AM documented in this encounter Plan of Treatment Upcoming Encounters Date Type Department Care Team (Late st Contact Info) Description 05/04/2023 3:00 PM EST Office Visit Dermatology Jyoti Polanco [place] [address] [place] [address] Lauren Vargas MD [address] [place] [address] 05/17/2023 8:30 AM EST Office Visit Cardiology, [facility] [address] [facility] [place] [address] Surjit Cristina PA-C [address] [place] [address] 05/30/2023 8:40 AM EST Office Visit General Internal Medicine [facility] [address] [facility] [place] [address] Phil Zuniga MD 200 [facility] [place] [address] Health Maintenance Due Date Last Done Comments [...] D LEVEL ONCE IN A LIFETIME-USE SMARTSET# [id number] Completed 05/25/2022, 08/13/2021, 05/26/2021, Additional history exists [...] this encounter Medical Devices Implanted Type Area Tree Driller Device Identifier Shelf Expiration Date Model / Serial / Lot [id number] 24.0d Io Lens Implanted:Qty: 1 on 04/17/2014 by Beau Pfeiffer MD at OR [facility] Right: Eye [employer] 05/03/2016 [id number] / [id number] / documented as of this encounter Advance Directives Latest Code Status on File Code Status Date Activated Date Inactivated Comments Full Code 04/17/2014 7:19 AM 04/17/2014 1:19 PM This order reflects the patients wishes and were consensually agreed upon. Care Teams Grain Elevator Clerk Relationship Specialty Start Date End Date Phil Zuniga MD [address] [place] [address] PCP - General Internal Medicine 03/17/16 documented as of this encounter
--- OUTSIDE RECORDS SUMMARY | 2023-03-23 23:27 | External Medical Summary | Summary of Care ---
Author Name Unknown Organization [facility] Address [address] [place] [address] Phone [phone] Care Team Providers Care First Assist Name Role Phone Phil Zuniga MD Primary Care Provider + Reason for Visit * Reason Comments Cough Started with a bad c ough on Monday. C/o nasal congestion and drainage. Encounter Details Date Type Department Care Team (Latest Contact Info) Description 03/17/2023 9:40 AM EST Office Visit General Internal Medicine [facility] Sherri Du Bois [address] [place] [address] Malia Kuhn MD [address] [place] [address] URI with cough and congestion*; Suspected COVID-19 virus infection; Acquired hypothyroidism; PAF (paroxysmal atrial fibrillation) (HCC); nursing home current use of anticoagulant therapy Allergies No known active allergiesdocumented as of this encounter (statuses as of 03/17/2023) Medications Medication Sig Dispensed Refills Start Date [...] mouth in the morning. 0 Active Ipratropium [place] 0.03 % Nasal Solution (Atrovent) Administer into [...] Cream (Efudex) Apply to site on right methodist twice daily x 6 weeks 40 g 1 07/19/2022 Active Mupirocin 2 % External Ointment (Bactroban) Apply to affected area at right methodist daily as needed 22 g 0 08/25/2022 Active Keota-3 Fatty Acids 1000 MG Oral Capsule (OMEGA-3) [...] as of this encounter (statuses as of 03/17/2023) Active Problems Problem Noted Date Diagnosed Date [...] as of this encounter (statuses as of 03/17/2023) Resolved Problems Problem Noted Date Diagnosed Date Resolved Date History of atrial fibrillation 11/01/2017 05/24/2021 Prediabetes 05/16/2017 03/22/2018 Overview: Per Prediabetes protocol #1 terminal worker current use of ant icoagulant therapy 03/19/2013 [...] as of this encounter (statuses as of 03/17/2023) Immunizations Name Administration Dates Next Due COVID-19 mRNA, LNP-s, No Pre serve, 2-Dose Series (ecobee) 06/20/2020,05/30/2020 Pneumococcal Polysaccharide PPV23 (Pneumovax) Season Influenza, [...] on file documented as of this encounter Last Filed Vital Signs Vital Sign Reading Time Taken Comments Blood Pressure 130/72 03/17/2023 9:26 AM EST Pulse 63 03/17/2023 9:26 AM EST Temperature 36.3 C (97.3 F) 03/17/2023 9:26 AM ES T Respiratory Rate - - Oxygen Saturation 97% 03/17/2023 9:26 AM EST Inhaled Oxygen Concentration - - Weight 61.8 kg (136 lb 4.8 oz) 03/17/2023 9:26 A M EST Height - - Body Mass Index 23.4 11/15/2022 7:25 AM EDT documented in this encounter Progress Notes * Malia Kuhn MD - 03/17/2023 9:59 AM EST SUBJECTIVE: Lilia Patel is a 87 year old female. Chief Complaint Patient presents with Cough Started with a bad cough on Monday. C/o nasal congestion and drainage. HPI: Patient presents today for acute appointment accompanied by her and son with cold symptoms which started 4 days ago on Monday. Admits to runny nose with clear secretions, cough seems shyla productive of a clear sputum. No fever or chills. Admits to sinus pressure around her nose, no wheezing or shortness of breath. States did call the pharmacist who advised her to take Mucinex DM, takes Zyrtec and atrovent most of the days also. Has not done home COVID test. No sick contacts. Has not had the flu vaccine yet this year or the COVID booster. She states she is feeling better but sonnotes that she has had more chest congestion. Immunization History Administered Date(s) Administered COVID-19 mRNA, LNP-s, No Preserve, 2-Dose Series (ecobee) 05/30/2020, 06/20/2020 Pneumococcal Polysaccharide PPV23 (Pneumovax) 04/27/2018 Season Influenza, Quad, PF, Adjuvanted, 65+ Yrs, IM (FLUAD) 01/08/2020 Seasonal Influenza, Quadrivalent Hd (Fluzone Hd) 01/10/2022 Seasonal Influenza, Trivalent, Adjuvanted, 65+ yrs 02/12/2018, 01/11/2019 TDAP (age 10 and older)(Boostrix) 08/23/2013 Patient Active Problem List Diagnosis Code History of nonmelanoma skin cancer Z85.828 Celiac disease K90.0 Hyperlipidemia E78.5 PAF (paroxysmal atrial fibrillation) (HCC) I48.0 High risk for fracture due to osteoporosis by DEXA scan M81.0 Acquired hypothyroidism E03.9 Generalized osteoarthritis M15.9 Mild aortic stenosis I35.0 History of vertebral compression fracture Z87.81 SVT (supraventricular tachycardia) I47.10 Current Outpatient Medications Medication Sig Dispense Refill acetaminophen (TYLENOL) 500 MG Tablet Take 1 Tablet by mouth every 8 hours as needed for Pain or Fever. 100 Tab 0 diphenhydrAMINE-APAP (sleep) 25-500 MG Oral Tablet Take 1 Tablet by mouth every night at bedtime. ferrous sulfate (FEOSOL) 325 (65 FE) MG Tablet Take 1 Tab by mouth daily. 90 Tab 3 Calcium 500/Vitamin D 500-125 MG-UNIT Oral Tablet (Calcium Carbonate-Vitamin D) Take 1 Tab by mouthdaily. Cetirizine HCl 10 MG Oral Capsule Take 1 Capsule by mouth in the morning. Ipratropium Jenner 0.03 % Nasal Solution (Atrovent) Administer into each nostril 2 Sprays 2 times a day as needed for Rhinitis. 30 mL 12 Ammonium Lactate 12 % External Cream Apply topically to affected area as needed for Dry Skin. Applyto feet nightly for dry skin 385 g 5 Diclofenac Sodium 1 % External Gel (Voltaren) Apply topically to affected area 4 g 2 times a day asneeded for Pain. For knees. 350 g 1 NATURAL SUPPLEMENT Take by mouth daily. Congaplex as needed for cold/flu symptoms Apixaban 2.5 MG Oral Tablet (Eliquis) Take 1 Tablet by mouth in the morning and 1 Tablet before bedtime. 180 Tablet 3 Levothyroxine Sodium 100 MCG Oral Tablet (Levoxyl) take 1 tablet by mouth every morning AT LEAST 30MINUTES PRIOR TO BREAKFAST/OTHER MEDS 90 Tablet 3 Vitamin D3 25 MCG (1000 UT) Oral Tablet (Vitamin D3) take 3 tablet by mouth once daily 270 Tablet 0 Fluorouracil 5 % External Cream (Efudex) Apply to site on right methodist twice daily x 6 weeks 40 g 1 Mupirocin 2 % External Ointment (Bactroban) Apply to affected area at right methodist daily as needed 22 g 0 Keota-3 Fatty Acids 1000 MG Oral Capsule (OMEGA-3) Take 1 Capsule by mouth in the morning. 30 Capsule 0 Metoprolol Succinate ER 25 MG Oral Tablet Extended Release 24 Hour (toPROL XL) take 1 tablet by mouth twice a day 180 Tablet 3 amoxicillin (AMOXIL) 500 MG Capsule Take 4 capsules one hour prior to dental appt 4 Cap 1 No current facility-administered medications for this visit. Review of patient's allergies indicates: No Known Allergies OBJECTIVE: BP 130/72 | Pulse 63 | Temp 36.3 C (97.3 F) (Tympanic) | Wt 61.8 kg (136 lb 4.8 oz) | SpO2 97% | BMI 23.40 kg/m | BSA 1.67 m PHYSICAL EXAM: General: alert, healthy, no distress, well nourished and well developed Ears: External ears normal, Canals clear, TM's Normal Nose: mild mucosal edema, no purulent discharge, no mucosal erythema, no sinus tenderness Oropharynx: no exudate, faint erythema sites pnd Neck: supple, no adenopathy Heart: regular Rhythm and rate, no murmurs Lungs: lungs clear to auscultation ex coarse bs Rt LL Last CMP reviewed ASSESSMENT/PLAN: URI with cough and congestion (Primary) - XR CHEST 2 VIEWS; Future; Expected date: 03/17/2023 - Proventil HFA 108 (90 Base) MCG/ACT Inhalation Aerosol Solution; Inhale 2 Puffs by mouth every 4 hours as needed for Wheezing or Cough. - Doxycycline Hyclate 100 MG Oral Capsule; Take 1 Capsule by mouth in the morning and 1 Capsule before bedtime. Do all this for 7 days. Take for 7 days. Suspected COVID-19 virus infection - XR CHEST 2 VIEWS; Future; Expected date: 03/17/2023 - Proventil HFA 108 (90 Base) MCG/ACT Inhalation Aerosol Solution; Inhale 2 Puffs by mouth every 4 hours as needed for Wheezing or Cough. - Doxycycline Hyclate 100 MG Oral Capsule; Take 1 Capsule by mouth in the morning and 1 Capsule before bedtime. Do all this for 7 days. Take for 7 days. Refuses COVID test to in the office. Son advised to do a home COVID test today and let us know if it is positive. Inc intake fluids. Advised to use otc nasal saline spray/drops q1-2 hrs while awake as needed. Advised warm saline gargles qid prn for relief. Continue Zyrtec daily, atrovent ns,continue Mucinex DM twice daily till better. Acquired hypothyroidism PAF (paroxysmal atrial fibrillation) (HCC) nursing home current use of anticoagulant therapy Follow Up: Return if symptoms worsen or fail to improve. (This note was completed using the dictation program Fluency Direct. As such, there may be misspellings, word substitutions, or other variations that should not change the essence of the clinical content of this encounter note. If there is need for further clarification, please direct questions to the provider listed above.) Patient and / caregiver verbalize understanding of above instructions and agrees with plan of care. Malia Kuhn MD 03/17/2023 documented in this encounter Nursing Notes * Jagruti Graham LPN - 03/17/2023 9:26 AM EST Chief Complaint Patient presents with Cough Started with a bad cough on Monday. C/o nasal congestion and drainage. documented in this encounter Plan of Treatment Upcoming Encounters Date Type Department Care Team (Late st Contact Info) Description 05/04/2023 3:00 PM EST Office Visit Dermatology [address] [place] [address] Lauren Vargas MD 200 [facility] [place] [address] 05/17/2023 8:30 AM EST Office Visit Cardiology, [facility] [address] [place] [address] Surjit Cristina PA-C [address] [place] [address] 05/30/2023 8:40 AM EST Office Visit General Internal Medicine [facility] [address] [facility] [place] [address] Phil Zuniga MD 200 [place] [address] Pending Results Name Type Priority Associated Diagnoses Date /Time XR CHEST 2 VIEWS Medical Imaging Routine URI with cough and congestion Suspected COVID-19 virus infection 03/17/2023 10:23 AM EST Scheduled Orders Name Type Priority Associated Diagnoses Orde r Schedule XR CHEST 2 VIEWS Medical Imaging Routine URI with cough and congestion Suspected COVID-19 virus infection Expected: 03/17/2023, Expires: 04/17/2024 Health Maintenance Due Date Last Done Comments [...] D LEVEL ONCE IN A LIFETIME-USE SMARTSET# [id number] Completed 05/25/2022, 08/13/2021, 05/26/2021, Additional history exists [...] this encounter Medical Devices Implanted Type Area Teacher Music Device Identifier Shelf Expiration Date Model / Serial / Lot [id number] 24.0d Io Lens Implanted:Qty: 1 on 04/17/2014 by Beau Pfeiffer MD at OR [facility] Right: Eye [employer] 05/03/2016 [id number] / [id number] / documented as of this encounter Visit Diagnoses Diagnosis URI with cough and congestion- Primary Suspected COVID-19 virus infection Acquired hypothyroidism Unspecified hypothyroidism PAF (paroxysmal atrial fibrillation) (HCC) Atrial fibrillation nursing home current use of anticoagulant therapy documented in this encounter Advance Directives Latest Code Status on File Code Status Date Activated Date Inactivated Comments Full Code 04/17/2014 7:19 AM 04/17/2014 1:19 PM This order reflects the patients wishes and were consensually agreed upon. Care Teams First Assist Relationship Specialty Start Date End Date Phil Zuniga MD [address] [place] [address], [place] [address] PCP - General Internal Medicine 03/17/16 documented as of this encounter"
[2023-03-24] MEDS: LEVOTHYROXINE SODIUM 100 MCG TABLET PO SCH (06:25)
[2023-03-24 08:03] LABS: Hematocrit (blood only) 37.3 % (37.0-47.0); Hemoglobin 12.6 g/dl (12.0-16.0); Mean Corpuscular Hemoglobin 30.5 pg (25.0-34.0); Mean Corpuscular Hgb Conc 33.8 g/dL (32.0-36.0); Mean Corpuscular Volume 90.3 fL (80.0-100.0); Mean Platelet Volume 10.5 fL (9.4-12.4); Platelet Count 241 K/uL (130-400); RDW Coefficient of Variation 12.3 % (11.5-14.5); RDW Standard Deviation 40.5 fL (36.4-46.3); Red Blood Count 4.13 M/uL (4.20-5.40); White Blood Count 5.27 K/ul (4.8-10.8)
[2023-03-24 08:20] LABS: BUN Creatinine Ratio 20.9 (10-20); Calcium 8.7 mg/dl (8.6-10.3); Est GFR (African American) 92.9 ml/min; Est GFR (Non-African American) 80.2 ml/min; Potassium 4.6 mmol/L (3.5-5.1)
[2023-03-24] MEDS: CETIRIZINE HCL 10 MG TABLET PO SCH (10:05)
[2023-03-24] MEDS: CHOLECALCIFEROL 25 MCG (1000 UNITS) TAB PO SCH (10:05)
[2023-03-24] MEDS: FERROUS SULFATE 325 MG TAB PO SCH (10:16)
--- NOTE | 2023-03-24 16:43 | Hospitalist Progress Note ---
Date of Service March 24, 2023 Assessment & Plan (1) Influenza A: (2) Hypoxia: Plan: - Admit to med surg - Supportive care with mucinex, duonebs QID and Q2H prn, Hycodan cough syrup prn - On VS here, no documented hypoxia, patient reports her O2 sats were in the low 80s at outpatient office earlier today after walking in from the parking lot - Influenza swab positive on admission - WBC at time of admission = 5.63 - Afebrile here - CXR reviewed, showing emphysema, patient denies any smoking history or known history of such, will need to be followed as outpatient. - Started on Tamiflu -Has been feeling much better. has minimal cough without any other symptoms -Weakness has improved and appetite has improved to -She has had PT evaluation and recommended home -Discussed with the son and she will be discharged home this afternoon (3) Hyponatremia: Plan: - NSS at 80 ml/hr x 1 bag, follow with am labs - likely due to decreased appetite/po intake -Odium level has been normalized and kidney function is normal to (4) HLD (hyperlipidemia): Plan: -Continue statin therapy (5) Paroxysmal atrial fibrillation: Plan: -Rate controlled on metoprolol, anticoagulated on Eliquis (6) Hypothyroidism: Plan: -Continue levothyroxine DVT PPx: teds, scds Lines: 2 PIV FEN/GI: Allow heart healthy diet CODE: Full code Will be discharged home this afternoon Admission and Anticipated Discharge Date Admission Date: March 23, 2023 Subjective 03/24/2023 The patient was seen and examined in medical floor She has been feeling much better and has minimal cough and no shortness of breath Her congestion is better to She has weakness which has improved a lot No nausea or vomiting, fever or chills or abdominal pain Review of Systems Review of Systems: All systems reviewed and are unremarkable except as noted below Physical Exam Physical Exam: Sitting on a chair without any apparent distress Constitutional: + ill appearing and average body habitus Eyes: PERRL, conjunctivae normal, anicteric sclerae ENMT: external ear and nose normal, oropharynx normal Neck: trachea midline, no thyromegaly Respiratory: no respiratory distress Auscultation: + diminished lung sounds; no crackles Cardiovascular: Rate/Rhythm: regular rate and regular rhythm; not tachycardic Heart Sounds: normal S1, normal S2 and + murmur Extremities: no edema Gastrointestinal (Abdomen): Inspection/Auscultation: normal bowel sounds; abdomen not distended Percussion/Palpation: abdomen soft; abdomen nontender Musculoskeletal: No acute arthritis involving any of the joint Neurologic: Alert, awake and oriented x 3. Generally weak but no focal sensory or motor deficit appreciated Results & Data Results & Data Vital Signs (Past 12 Hours) Vital Signs Temp Pulse Resp BP Pulse Ox O2 Del Method 03/24/23 15:02 66 16 94 Room Air 03/24/23 14:28 36.6 C 68 16 119/71 95 Room Air 03/24/23 11:29 63 18 94 Room Air 03/24/23 07:11 36.7 C 70 16 128/79 94 Room Air 03/24/23 06:59 63 18 91 Room Air Laboratory Results Short CBC 03/24/23 Range/Units 07:13 WBC 5.27 (4.8-10.8) K/ul Hgb 12.6 (12.0-16.0) g/dl Hct 37.3 (37.0-47.0) % Plt Count 241 (130-400) K/uL [facility] 03/24/23 07:13 Sodium 135 L Potassium 4.6 Chloride 100 Carbon Dioxide 28 BUN 14 Creatinine 0.67 Glucose 92 Calcium 8.7 Liver Function 03/23/23 Range/Units 15:06 Total Bilirubin 0.5 (0.2-1.0) mg/dl AST 30 (13-39) U/L ALT 29 (7-52) U/L Alkaline Phosphatase 111 H (34-104) U/L Albumin 3.9 (3.4-5.0) gm/dl Medications Administered Current Inpatient Medications Acetaminophen (Acetaminophen 325 Mg Tab) 650 mg PO Q4H PRN PRN Reason: Moderate Pain (Scale 4, 5, 6) Stop: 04/22/23 21:31 Albuterol (Albut/Ipratrop 3mg/0.5mg Neb 3 Ml Vial) 3 ml NEB Q4R [facility]; Protocol Stop: 04/22/23 18:59 Last Admin: 03/24/23 15:01 Dose: 3 ml Apixaban (Apixaban 2.5 Mg Tab) 2.5 mg PO BID [facility] Stop: 04/22/23 21:44 Last Admin: 03/24/23 10:04 Dose: 2.5 mg Cetirizine HCl (Cetirizine Hcl 10 Mg Tablet) 10 mg PO DAILY [facility] Stop: 04/23/23 08:59 Last Admin: 03/24/23 10:05 Dose: 10 mg Diclofenac Sodium (Diclofenac Sod 1% Gel 100 Gm Tube) 4 gm EXT BID PRN; Protocol PRN Reason: KNEE PAIN Stop: 04/22/23 21:31 Ferrous Sulfate (Ferrous Sulfate 325 Mg Tab) 325 mg PO QAM [facility] Stop: 04/23/23 08:59 Last Admin: 03/24/23 10:16 Dose: 325 mg Guaifenesin (Guaifenesin 600 Mg Tabcr) 1,200 mg PO Q12 [facility] Stop: 04/22/23 21:44 Last Admin: 03/24/23 10:17 Dose: 1,200 mg Hydrocodone Bit/Homatropine Methylb (Hydrocodone/Homatropine Syrup 5mg/1.5mg 5ml Udp) 5 ml PO Q6H PRN PRN Reason: Cough Stop: 04/06/23 21:31 Ipratropium [place] (Ipratropium [place] Nasal [place] 0.06% 15ml) 2 sprays KASSIDY BID PRN PRN Reason: RHINITIS Stop: 04/22/23 21:42 Levothyroxine Sodium (Levothyroxine Sodium 100 Mcg Tablet) 100 mcg PO DAILYBB [facility] Stop: 04/23/23 06:29 Last Admin: 03/24/23 06:25 Dose: 100 mcg Metoprolol Succinate (Metoprolol Succ 25mg Ext Rel Tab) 25 mg PO BID [facility] Stop: 04/22/23 21:31 Last Admin: 03/24/23 10:18 Dose: 25 mg Ondansetron HCl (Ondansetron Inj 2 Mg/Ml 2 Ml Vial) 4 mg IV Q4H PRN PRN Reason: Nausea And Vomiting Stop: 04/22/23 21:31 Oseltamivir Phosphate (Oseltamivir Phosphate Susp 30 Mg/5 Ml Udp) 30 mg PO BID [facility]; Protocol Stop: 03/28/23 21:59 Last Admin: 03/24/23 10:18 Dose: 30 mg Vitamin D (Cholecalciferol 1,000 Units 25 Mcg Tab) 1,500 units PO DAILY [facility] Stop: 04/23/23 08:59 Last Admin: 03/24/23 10:05 Dose: 1,500 units
--- NOTE | 2023-03-25 06:07 | Electrocardiogram Report ---
Test Reason : Blood Pressure : / mmHG Vent. Rate : 062 BPM Atrial Rate : 062 BPM P-R Int : 182 ms QRS Dur : 096 ms QT Int : 454 ms P-R-T Axes : 079 -45 043 degrees QTc Int : 460 ms Normal sinus rhythm Left anterior fascicular block Minimal voltage criteria for LVH, may be normal variant ( [place] product ) Nonspecific T wave abnormality Abnormal ECG When compared with ECG of 16-MAY-2018 14:38, Premature atrial complexes are no longer Present Nonspecific T wave abnormality now evident in Inferior leads T wave inversion now evident in Anterior leads Confirmed by Ivan Dinero ([id number]) on 03/25/2023 6:07:08 AM Referred By: Confirmed By:Ivan Dinero
--- NOTE | 2023-03-25 08:16 | Discharge Summary ---
Date of Service March 24, 2023 Admission HPI Per Admitting Provider This is an 87 yo F with PMhx of paroxysmal A-fib on Eliquis, episode of SVT, HLD, Hypothyroidism, who presents to the hospital with acute worsening shortness of breath and hypoxia per EMS. Pt has tested positive for influenza A here in the ER. Pt reports taking an antibiotic and an inhaler as outpatient last week, however it made her feel worse. Appears this was doxycycline and her biggest complaint was nausea and upset stomach with just two doses so stopped taking it. She has been coughing for about 3 weeks. This week feels like shortness of breath is worse on exertion when she walks. She went to her PCP office this morning, and by the time she walked into the office, her puse ox was reading in the low 80s. Pt was referred here to the ER due to hypoxia. She found relief with using the inhaler and states it makes her feels better. Pt has had less of an appetite recently. Denies nausea, vomiting, diarrhea. She denies known fever or other sick contacts. Pt notes at baseline she can perform all ADLs including getting herself dressed, bathe, cooking food, cleaning etc. Pt lives at home with her who is present at bedside. One of her sons is also present at bedside. Pt was not vaccinated against the flu this year. CXR is showing emphysema, denies smoking history. Denies familial lung issues. Admission Exam Per Admitting Provider Physical Exam: General: awake, alert, no apparent distress, thin white female Head: Normocephalic, atraumatic ENT: PERRL, EOMI, no pharyngeal exudate, mucous membranes slightly dry Chest: + Wet sounding cough, diminished at bases bilaterally, faint wheeze, on room air Cardiac: Regular rate and rhythm, + holosystolic murmur, no JVD, normal peripheral pulses, good capillary refill Abdominal: NABS x 4 quadrants, soft, nondistended, nontender to palpation, no rebound or guarding Extremities: Normal inspection, no peripheral edema or erythema, calfs nontender to palpation Psych: Normal mood and affect Neuro: AAO x 3, strength intact bilaterally and rated 5/5, no motor deficits, speech is clear, no peripheral sensory deficits Principal Diagnosis Influenza A, hyponatremia Discharge Exam Sitting on a chair without any apparent distress Constitutional + ill appearing and average body habitus Eyes PERRL, conjunctivae normal, anicteric sclerae ENMT external ear and nose normal, oropharynx normal Neck trachea midline, no thyromegaly Respiratory no respiratory distress Auscultation: + diminished lung sounds; no crackles Cardiovascular Rate/Rhythm: regular rate and regular rhythm; not tachycardic Heart Sounds: normal S1, normal S2 and + murmur Extremities: no edema Gastrointestinal (Abdomen) Inspection/Auscultation: normal bowel sounds; abdomen not distended Percussion/Palpation: abdomen soft; abdomen nontender Discharge Data Allergies Allergy/AdvReac Type Severity Reaction Status Date / Time No Known Allergies Allergy Unknown Verified 03/23/23 16:59 Consultations 03/23/23 16:18 ED Decision to Admit Stat Hospital Course (1) Influenza A: (2) Hypoxia: - Admit to med surg - Supportive care with mucinex, duonebs QID and Q2H prn, Hycodan cough syrup prn - On VS here, no documented hypoxia, patient reports her O2 sats were in the low 80s at outpatient office earlier today after walking in from the parking lot - Influenza swab positive on admission - WBC at time of admission = 5.63 - Afebrile here - CXR reviewed, showing emphysema, patient denies any smoking history or known history of such, will need to be followed as outpatient. - Started on Tamiflu -Has been feeling much better. has minimal cough without any other symptoms -Weakness has improved and appetite has improved to -She has had PT evaluation and recommended home -Discussed with the son and she will be discharged home this afternoon (3) Hyponatremia: - NSS at 80 ml/hr x 1 bag, follow with am labs - likely due to decreased appetite/po intake -Odium level has been normalized and kidney function is normal to (4) HLD (hyperlipidemia): -Continue statin therapy (5) Paroxysmal atrial fibrillation: -Rate controlled on metoprolol, anticoagulated on Eliquis (6) Hypothyroidism: -Continue levothyroxine DVT PPx: teds, scds Lines: 2 PIV FEN/GI: Allow heart healthy diet CODE: Full code Will be discharged home this afternoon Total Time Total Time Spent Total Time Spent (In Minutes): 35 minutes Discharge Plan Discharge Items Patient Disposition: Home - Self-Care Reason For Visit: INFLUENZA A, HYPONATREMIA Discharge Diagnosis: Influenza A, hyponatremia Activity: Resume your previous activity Non-emergency contact: Primary Care Provider Call non-emergency contact if: you have any medication questions and your symptoms worsen Follow-up/Referrals: Phil Zuniga MD [Primary Care Provider] - (Your doctor's office will give you a call on Monday with an appointment within 7 days) Diet: Heart Healthy Addtl Attending Provider Instructions: Please take precautions to avoid falls Finish your medications as Try to eat and drink more to avoid dehydration Please give appointments with the healthcare providers Can try [id number] Robitussin DM to suppress cough Pending Studies at Discharge: No Stand-Alone Forms: [employer], Smoking Cessation Medications and DC Order Prescriptions: New oseltamivir [Tamiflu] 30 mg capsule 30 mg PO BID 4 Days Qty: 8 0RF Continued metoprolol succinate 25 mg Tablet Extended Release 24 Hr 25 mg PO BID acetaminophen 500 mg Tablet 1,000 mg PO BID ferrous sulfate 325 mg (65 mg iron) Tablet 325 mg PO QAM Willcox 3-6-9 1,200 mg Capsule 1 tab PO QAM amoxicillin 500 mg Capsule 2,000 mg PO DIRECTED PRN (Reason: 1 HR PRIOR TO DENTAL PROCEDURES) cetirizine [Zyrtec] 10 mg Tablet 10 mg PO DAILY levothyroxine 100 mcg tablet 100 mcg PO DAILYBB ammonium lactate 12 % Cream 1 applic TOPICAL HS PRN (Reason: DRY SKIN AREAS) mupirocin 2 % Ointment 1 applic TOPICAL DAILY PRN (Reason: RIGHT MORMONISM NEEDED) albuterol sulfate 90 mcg/actuation HFA aerosol inhaler 2 puff INHALATION Q4H PRN (Reason: WHEEZING/COUGH) diphenhydramine-acetaminophen [Tylenol PM Extra Strength] 25-500 mg Tablet 1 tab PO HS ipratropium bromide 21 mcg (0.03 %) [place],Non-Aerosol 2 spray INTRANASAL BID PRN (Reason: RHINITIS) Rx Instructions: administer into each nostril cholecalciferol (vitamin D3) [Vitamin D3] 25 mcg (1,000 unit) Tablet 37.5 mcg PO DAILY Rx Instructions: PER [facility]--SHOULD BE TAKING 3,000 UNITS, PT TAKES 1 1/2 TABS DAILY. calcium carbonate-vitamin D3 500 mg-3.125 mcg (125 unit) Tablet 1 tab PO DAILY diclofenac sodium 1 % Gel 4 g TOPICAL BID PRN (Reason: KNEE PAIN) Eliquis 2.5 mg Tablet 2.5 mg PO BID Congaplex 1 dose PO DIRECTED PRN (Reason: Cold Symptoms) Discharge Orders: Discharge Order (Routine); Ordered 03/24/23 Ordered By: Serina Garcia Admission Data Admit Date/Time: 03/23/23 17:34 Attending Provider: Serina Garcia Admit Provider: Erin Reno Primary Care Provider: Phil Zuniga Other Providers: Erin Reno Other Interventions: Discharge Summary Assessment (RN) Last Done: 03/24/23 17:12
== END 2023-03-24 17:41 | disposition home or self-care (01) | DRG 194 ==
LOC: ED 14:04 → INTOOBSV 17:34 → 3W 17:34 → SUATTDRO 17:34 → 3W 20:59